=== PATIENT | male | born 1995 | race Caucasian/White ===

== ENCOUNTER 2018-10-06 17:01 | Emergency (ER) | payer OTHER, SELFPAY ==
[2018-10-06 17:39] VITALS: BP 136/82; PULSE 92; RESP 16; TEMP 36.6; O2SAT 98; BMI 29.5
--- NOTE | 2018-10-06 17:51 | HMH.EDUTC ---
[facility] [place] Clinical Impression: Back strain Qualifiers: Encounter type: initial encounter Qualified Code(s): S39.012A - Strain of muscle, fascia and tendon of lower back, initial encounter Back pain Qualifiers: Back pain location: low back pain Chronicity: acute Back pain laterality: left Sciatica presence: without sciatica Qualified Code(s): M54.5 - Low back pain Disposition: Home, Self-Care Condition on Discharge: Good Instructions: Low Back Pain, DI for Back Strain or Sprain Additional Instructions: Rest your back for the next 3 days. Take the medications as prescribed. The muscle relaxer (flexeril) will make you drowsy, so no driving or operating heavy machinery after taking it. Follow up with your regular doctor in 48 hours if you are not getting better. Watch yourself for any numbness of your saddle region or bowel or bladder problems. If you do begin to have this, please go to the ER at once. GO TO THE ER FOR ANY WORSENING OR LIFE THREATENING SYMPTOMS. Prescriptions: Cyclobenzaprine HCl [Flexeril 10mg tablet] 10 mg PO TIDP PRN #30 tablet PRN Reason: Muscle Spasm methylPREDNISolone [Medrol] 4 mg PO DIRECTED 6 Days #21 tab.ds.pk Referrals: Micheal Roberson MD [Primary Care Provider] - Forms: Work/School Release Time of Disposition: 18:02 Medical Decision Making - Medical Records Medical records reviewed: No: I reviewed the patient's medical records. - Andi Inquiry Pt receiving controlled substance: No Andi was queried for this patient: No Vital Signs: 10/06/18 17:39 10/06/18 18:26 Temperature 97.9 F 98.1 F Temperature Source Oral Pulse Rate 86 Pulse Rate [Left Brachial] 92 H Respiratory Rate 16 18 Blood Pressure 130/76 Blood Pressure [Left Arm] 136/82 Blood Pressure Mean [Left Arm] 100 Blood Pressure Source [Left Arm] Automatic Cuff Blood Pressure Position [Left Arm] Sitting 02 Sat by Pulse Oximetry 98 Oxygen Delivery Method Room Air Room Air Orders (Tests/Meds): ED MEDICATIONS Discontinued Medications Generic Name Dose Route Start Last Admin Trade Name Freq PRN Reason Stop Dose Admin Ketorolac Tromethamine 60 mg 10/06/18 18:03 10/06/18 18:08 Toradol 60mg/2ml Vial IM 10/06/18 18:04 60 mg ONCE ONE Administration [facility] [place] - General Stated complaint: WC 0213@2000 Injured Back Time Seen by Provider: 10/06/18 17:45 Mode of Arrival: Family Vehicle Source of Information: Patient Limitations: No Limitations Description of Symptoms (Recalled from Triage Doc. by RN): PT C/O OF BACK PAIN IN LUMBAR AND THORACIC REGION SINCE SUNDAY. 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 PT STATES HIS JOB IS AWARE OF INJURY. HEENT Symptoms (Recalled from RN notes): No Resp Symptoms (Recalled from RN notes): No Skin Symptoms (Recalled from RN notes): No MS Symptoms (Recalled from RN notes): Yes (MID THORACIC AND LUMBAR PAIN) Functional Status (Recalled from RN notes): N/A - History of Present Illness Provider Complaint: HE IS HAVING LOW BACK PAIN SINCE SUNDAY. 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 - Related Data Previous Rx's Medication Instructions Recorded Cyclobenzaprine HCl [Flexeril 10mg 10 mg PO TIDP PRN #30 tablet 10/06/18 tablet] methylPREDNISolone [Medrol] 4 mg PO DIRECTED 6 Days #21 10/06/18 tab.ds.pk Allergies Allergy/AdvReac Type Severity Reaction Status Date / Time No Known Allergies Allergy Verified 10/06/18 17:44 - Worker's Comp Is this a Worker's Comp case?: No [facility] History - Hepatitis A Screen Drug use history?: No High risk sexual behaviors?: No History of sexually transmitted infection?: No Currently employed?: No Childcare worker?: No Do you have indoor plumbing?: No Do you have electricity?: Yes Attestation statement:: This patient has bee
--- NOTE | 2018-10-06 17:56 | ED_ITS ---
[facility] [place]: Back strain Qualifiers: Encounter type: initial encounter Qualified Code(s): S39.012A - Strain of muscle, fascia and tendon of lower back, initial encounter Back pain Qualifiers: Back pain location: low back pain Chronicity: acute Back pain laterality: left Sciatica presence: without sciatica Qualified Code(s): M54.5 - Low back pain Disposition: Home, Self-Care Condition on Discharge: Good Instructions: Low Back Pain, DI for Back Strain or Sprain Additional Instructions: Rest your back for the next 3 days. Take the medications as prescribed. The muscle relaxer (flexeril) will make you drowsy, so no driving or operating heavy machinery after taking it. Follow up with your regular doctor in 48 hours if you are not getting better. Watch yourself for any numbness of your saddle region or bowel or bladder problems. If you do begin to have this, please go to the ER at once. GO TO THE ER FOR ANY WORSENING OR LIFE THREATENING SYMPTOMS. Prescriptions: Cyclobenzaprine HCl [Flexeril 10mg tablet] 10 mg PO TIDP PRN #30 tablet PRN Reason: Muscle Spasm methylPREDNISolone [Medrol] 4 mg PO DIRECTED 6 Days #21 tab.ds.pk Referrals: Micheal Roberson MD [Primary Care Provider] - Forms: Work/School Release Time of Disposition: 18:02 Medical Decision Making - Medical Records Medical records reviewed: No: I reviewed the patient's medical records. - Andi Inquiry Pt receiving controlled substance: No Andi was queried for this patient: No Vital Signs: 10/06/18 17:39 10/06/18 18:26 Temperature 97.9 F 98.1 F Temperature Source Oral Pulse Rate 86 Pulse Rate [Left Brachial] 92 H Respiratory Rate 16 18 Blood Pressure 130/76 Blood Pressure [Left Arm] 136/82 Blood Pressure Mean [Left Arm] 100 Blood Pressure Source [Left Arm] Automatic Cuff Blood Pressure Position [Left Arm] Sitting 02 Sat by Pulse Oximetry 98 Oxygen Delivery Method Room Air Room Air Orders (Tests/Meds): ED MEDICATIONS Discontinued Medications Generic Name Dose Route Start Last Admin Trade Name Freq PRN Reason Stop Dose Admin Ketorolac Tromethamine 60 mg 10/06/18 18:03 10/06/18 18:08 Toradol 60mg/2ml Vial IM 10/06/18 18:04 60 mg ONCE ONE Administration [facility] [place] - General Stated complaint: WC 0213@2000 Injured Back Time Seen by Provider: 10/06/18 17:45 Mode of Arrival: Family Vehicle Source of Information: Patient Limitations: No Limitations Description of Symptoms (Recalled from Triage Doc. by RN): PT C/O OF BACK PAIN IN LUMBAR AND THORACIC REGION SINCE SUNDAY. 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 PT STATES HIS JOB IS AWARE OF INJURY. HEENT Symptoms (Recalled from RN notes): No Resp Symptoms (Recalled from RN notes): No Skin Symptoms (Recalled from RN notes): No MS Symptoms (Recalled from RN notes): Yes (MID THORACIC AND LUMBAR PAIN) Functional Status (Recalled from RN notes): N/A - History of Present Illness Provider Complaint: HE IS HAVING LOW BACK PAIN SINCE SUNDAY. 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 - Related Data
[2018-10-06 18:26] VITALS: BP 130/76; PULSE 86; RESP 18; TEMP 36.7; O2SAT 100
== END 2018-10-06 18:26 | disposition home or self-care (01) ==
PROVIDERS: Emergency Provider Nurse Practitioner Family; PCP Family Medicine
DX: S39.012A Strain of muscle, fascia and tendon of lower back, initial encounter (principal); X50.0XXA Overexertion from strenuous movement or load, initial encounter; Y92.69 Other specified industrial and construction area as the place of occurrence of the external cause; Y99.0 Civilian activity done for income or pay; F17.210 Nicotine dependence, cigarettes, uncomplicated
CPT/HCPCS: 96372; 99201

== ENCOUNTER 2020-01-19 20:27 | Emergency (ER) | payer OTHER, SELFPAY ==
[2020-01-19 20:35] VITALS: BP 137/87; PULSE 70; RESP 20; TEMP 36.9; O2SAT 98; BMI 38.0
--- NOTE | 2020-01-19 20:40 | HMH.EDUTC ---
[facility] – [place] Disposition Clinical Impression: Encounter to obtain excuse from work Disposition: Home, Self-Care Condition on Discharge: Good Instructions: Avoiding Foods That Cause Heartburn, Heartburn -- Overview, DI for Heartburn, GERD Diet Additional Instructions: If you continue to have episodes of heartburn make sure to follow up with your family doctor for further evaluation and treatment *Return if needed Straight to ER if any life threatening sy-mptoms Follow up with family doctor in the next 48-72 hours if no improvement or any worsening of symptoms Referrals: Micheal Roberson MD [Primary Care Provider] - Forms: Work/School Release Time of Disposition: 20:45 Medical Decision Making - Andi Inquiry Pt receiving controlled substance: No Andi was queried for this patient: No Vital Signs: 01/19/20 20:35 Temperature 98.4 F Temperature Source Oral Pulse Rate [Left Brachial] 70 Respiratory Rate 20 Blood Pressure [Left Arm] 137/87 Blood Pressure Mean [Left Arm] 103 Blood Pressure Source [Left Arm] Automatic Cuff Blood Pressure Position [Left Arm] Sitting 02 Sat by Pulse Oximetry 98 Oxygen Delivery Method Room Air [facility] [place] HPI - General Stated complaint: heartburn/doctors note Time Seen by Provider: 01/19/20 20:40 Mode of Arrival: Ambulatory Source of Information: Patient Limitations: No Limitations Description of Symptoms (Recalled from Triage Doc. by RN): PATIENT STATES HE VOMITING ON D/T HEARTBURN AND MISSED WORK. HE SAYS HE HAS NOT VOMITED SINCE. REQUESTING A DOCTOR'S NOTE TO RETURN TO WORK HEENT Symptoms (Recalled from RN notes): No Resp Symptoms (Recalled from RN notes): No Skin Symptoms (Recalled from RN notes): No MS Symptoms (Recalled from RN notes): No Functional Status (Recalled from RN notes): WNL - History of Present Illness Provider Complaint: Patient states that he eat some pizza on Sunday and it give him really bad heartburn and he vomited a couple of times and had to call into work States that his sister had some medication for heartburn and he took some and it helped States that he hasnt vomited since but work wanted him to come in and get a note before work tomorrow Denies known exposure to COVID19 - Related Data Allergies Allergy/AdvReac Type Severity Reaction Status Date / Time No Known Allergies Allergy Verified 05/15/19 21:38 - Worker's Comp Is this a Worker's Comp case?: No [facility] History - Hepatitis A Screen Drug use history?: No High risk sexual behaviors?: No History of sexually transmitted infection?: No Currently employed?: No Childcare worker?: No Do you have indoor plumbing?: Yes Do you have electricity?: Yes Attestation statement:: This patient has been screened for Hepatitis A risk factors. I have reviewed the patient's past medical history: Yes Medical History: Denies:: Cancer, Diabetes Mellitus Type 1, Diabetes Mellitus Type 2, MRSA Laterality Cases: Bilateral: Tonsillectomy Amputation: No Fractures: No - Social History Smoking Status: Current every day smoker Tobacco Type: cigarettes # Packs/Day (cigarettes): 1 Alcohol Intake: never Alcohol Intake Frequency:: a few times a month Occupational Status: employed ROS Obtained: Yes All systems reviewed & no additional complaints, Yes Systems reviewed as appropriate & no additional complaints - Constitutional Constitutional: Reports system reviewed and no additional complaints, except as docu, Denies body ache, Denies chills, Denies fever(s) - ENT Ears, Nose, Mouth, and Throat: Reports system reviewed and no additional complaints, except as docu - Cardiovascular Cardiovascular: Reports system reviewed and no additional complaints, except as docu - Respiratory Respiratory: Yes system reviewed and no additional complaints, except as docu - Gastrointestinal Gastrointestingal: Reports: system reviewed and no additional complaints, except as docu Comments: Vomited twice on Sunday after ge
[2020-01-19 20:41] VITALS: BP 137/87; PULSE 70; RESP 20; TEMP 36.9; O2SAT 98
== END 2020-01-19 20:53 | disposition home or self-care (01) ==
PROVIDERS: Emergency Provider Nurse Practitioner; PCP Family Medicine
DX: Z02.89 Encounter for other administrative examinations (principal); R11.10 Vomiting, unspecified; R12 Heartburn; F17.210 Nicotine dependence, cigarettes, uncomplicated
CPT/HCPCS: 99201

== ENCOUNTER 2020-01-27 20:32 | Emergency (ER) | payer OTHER, SELFPAY ==
[2020-01-27 20:40] VITALS: BP 122/79; PULSE 72; RESP 19; TEMP 36.8; O2SAT 98; BMI 37.8
--- NOTE | 2020-01-27 20:43 | HMH.EDUTC ---
[facility] [place] Clinical Impression: Encounter to obtain excuse from work GERD (gastroesophageal reflux disease) Qualifiers: Esophagitis presence: without esophagitis Qualified Code(s): K21.9 - Gastro-esophageal reflux disease without esophagitis Disposition: Home, Self-Care Condition on Discharge: Good Instructions: Gastroesophageal Reflux Disease (Alternative Therapy), DI for Gastroesophageal Reflux Disease (GERD), GERD Diet, Famotidine Additional Instructions: Avoid GERD exacerbating agents (ETOH, caffeine, nicotine, chocolate, fatty foods) Sleep with head of bed elevated Avoid eating within 3hr of sleep Small frequent feeds, avoid semi-supine position (e.g. carseat, carrier) right after feeds Take medication as prescribed STOP SMOKING Follow up with family doctor for further treatment if no improvement or any worsening of symptom in the next 48-*72 hours Return if needed Straight to ER if any life threatening symptoms Prescriptions: Famotidine [Pepcid 20mg Tablet] 20 mg PO BID 7 Days #14 tab Transmission Status: Pending to [facility] #[id number] Referrals: Micheal Roberson MD [Primary Care Provider] - As needed Forms: Work/School Release Time of Disposition: 20:48 Medical Decision Making - Andi Inquiry Pt receiving controlled substance: No Andi was queried for this patient: No Vital Signs: 01/27/20 20:40 Temperature 98.3 F Temperature Source Oral Pulse Rate [Right Brachial] 72 Respiratory Rate 19 Blood Pressure [Right Arm] 122/79 Blood Pressure Mean [Right Arm] 93 Blood Pressure Source [Right Arm] Automatic Cuff Blood Pressure Position [Right Arm] Sitting 02 Sat by Pulse Oximetry 98 Oxygen Delivery Method Room Air [facility] [place] HPI - General Stated complaint: Vomiting, heartburn Time Seen by Provider: 01/27/20 20:43 Mode of Arrival: Ambulatory Source of Information: Patient Limitations: No Limitations Description of Symptoms (Recalled from Triage Doc. by RN): PATIENT STATES HE HAD HEARTBURN AT WORK WHICH CAUSED HIM TO VOMIT. HE IS REQUESTING A WORK EXCUSE HEENT Symptoms (Recalled from RN notes): No Resp Symptoms (Recalled from RN notes): No Skin Symptoms (Recalled from RN notes): No MS Symptoms (Recalled from RN notes): No Functional Status (Recalled from RN notes): WNL - History of Present Illness Provider Complaint: Patient states that he has a history of GERD States that he tried over the counter Prilosec and it hasnt helped and earlier today he had heartburn and vomited and they sent him from home from work, States they told him he had to come in and get checked before he could return to work tomorrow - Related Data Previous Rx's Medication Instructions Recorded Famotidine [Pepcid 20mg Tablet] 20 mg PO BID 7 Days #14 tab 01/27/20 Allergies Allergy/AdvReac Type Severity Reaction Status Date / Time No Known Allergies Allergy Verified 05/15/19 21:38 - Worker's Comp Is this a Worker's Comp case?: No [facility] History - Hepatitis A Screen Drug use history?: No High risk sexual behaviors?: No History of sexually transmitted infection?: No Currently employed?: No Childcare worker?: No Do you have indoor plumbing?: Yes Do you have electricity?: Yes Attestation statement:: This patient has been screened for Hepatitis A risk factors. I have reviewed the patient's past medical history: Yes Medical History: Denies:: Cancer, Diabetes Mellitus Type 1, Diabetes Mellitus Type 2, MRSA Laterality Cases: Bilateral: Tonsillectomy Amputation: No Fractures: No - Social History Smoking Status: Current every day smoker Tobacco Type: cigarettes # Packs/Day (cigarettes): 1 Alcohol Intake: never Alcohol Intake Frequency:: a few times a month Occupational Status: other ROS Obtained: Yes All systems reviewed & no additional complaints, Yes Systems reviewed as appropriate & no additional complaints - Gastrointestinal Gastrointestingal: Reports: dyspepsia, vomiting Physical
[2020-01-27 20:50] VITALS: BP 122/79; PULSE 72; RESP 19; TEMP 36.8; O2SAT 98
== END 2020-01-27 20:55 | disposition home or self-care (01) ==
PROVIDERS: Emergency Provider Nurse Practitioner; PCP Family Medicine
DX: K21.9 Gastro-esophageal reflux disease without esophagitis (principal); F17.210 Nicotine dependence, cigarettes, uncomplicated; Z02.89 Encounter for other administrative examinations
CPT/HCPCS: 99201

== ENCOUNTER 2020-02-18 20:36 | Emergency (ER) | payer OTHER, SELFPAY ==
[2020-02-18 20:45] VITALS: BP 147/82; PULSE 68; RESP 19; TEMP 36.8; O2SAT 98; BMI 37.8
--- NOTE | 2020-02-18 20:51 | HMH.EDUTC ---
[facility] [place] Clinical Impression: GERD (gastroesophageal reflux disease) Qualifiers: Esophagitis presence: esophagitis presence not specified Qualified Code(s): K21.9 - Gastro-esophageal reflux disease without esophagitis Disposition: Home, Self-Care Condition on Discharge: Good Instructions: DI for Gastroesophageal Reflux Disease (GERD), GERD Diet, Heartburn -- Overview, Gastroesophageal Reflux Disease (Alternative Therapy), Serious Ways to Stop Smoking, How to Quit Smoking Additional Instructions: Take medication as prescribed *Stop smoking, this could aggravate your GERD and make heartburn worse Take medication as prescribed FOllow up with family doctor if no improvement or any worsening of symptoms in the next 48-72 hours Straight to ER if any life threatening symptoms Make sure not to eat or drink at least a couple hours prior to laying down to sleep and sit upright at least thirty minutes after eating or drinking Return if needed Prescriptions: Famotidine [Pepcid 20mg Tablet] 20 mg PO BID 14 Days #28 tab Transmission Status: Pending to [facility] #[id number] Referrals: Micheal Roberson MD [Primary Care Provider] - As needed Forms: Work/School Release Time of Disposition: 21:02 Medical Decision Making - Andi Inquiry Pt receiving controlled substance: No Andi was queried for this patient: No Vital Signs: 02/18/20 20:45 Temperature 98.2 F Temperature Source Oral Pulse Rate [Right Brachial] 68 Respiratory Rate 19 Blood Pressure [Right Arm] 147/82 H Blood Pressure Mean [Right Arm] 103 Blood Pressure Source [Right Arm] Automatic Cuff Blood Pressure Position [Right Arm] Sitting 02 Sat by Pulse Oximetry 98 Oxygen Delivery Method Room Air Medical Decision Narrative: Patient states that Famotidine that he was prescribed previously for heart burn helped but he ran out of the medication and did not follow up with PCP for further prescriptions Patient educated that he must follow up with PCP for further prescriptions of medication to help with heartburn and he agreed [facility] [place] - General Stated complaint: not feeling well Time Seen by Provider: 02/18/20 20:51 Mode of Arrival: Ambulatory Source of Information: Patient Limitations: No Limitations Description of Symptoms (Recalled from Triage Doc. by RN): PATIENT C/O VOMITING X 1 DUE TO HEARTBURN AND DID NOT GO TO WORK; REQUESTING A WORK EXCUSE HEENT Symptoms (Recalled from RN notes): No Resp Symptoms (Recalled from RN notes): No Skin Symptoms (Recalled from RN notes): No MS Symptoms (Recalled from RN notes): No Functional Status (Recalled from RN notes): WNL - History of Present Illness Provider Complaint: Patient state that he has been seen multiple times over the last month for heart burn and was given prescription for medication and it helped but he is out of the medication and didnt follow up with PCP like he was suppose to State that today he was having heart burn again and vomited x 1 and didnt go to work so he came in to get a doctors note - Related Data Previous Rx's Medication Instructions Recorded Famotidine [Pepcid 20mg Tablet] 20 mg PO BID 7 Days #14 tab 01/27/20 Famotidine [Pepcid 20mg Tablet] 20 mg PO BID 14 Days #28 tab 02/18/20 Allergies Allergy/AdvReac Type Severity Reaction Status Date / Time No Known Allergies Allergy Verified 05/15/19 21:38 - Worker's Comp Is this a Worker's Comp case?: No [facility] History - Hepatitis A Screen Drug use history?: No High risk sexual behaviors?: No History of sexually transmitted infection?: No Currently employed?: No Childcare worker?: No Do you have indoor plumbing?: Yes Do you have electricity?: Yes Attestation statement:: This patient has been screened for Hepatitis A risk factors. I have reviewed the patient's past medical history: Yes Medical History: Denies:: Cancer, Diabetes Mellitus Type 1, Diabetes Mellitus Type 2, MRSA Laterality Cases: Bilateral: Tonsi
[2020-02-18 21:03] VITALS: BP 147/82; PULSE 68; RESP 19; TEMP 36.8; O2SAT 98
== END 2020-02-18 21:05 | disposition home or self-care (01) ==
PROVIDERS: Emergency Provider Nurse Practitioner; PCP Family Medicine
DX: K21.9 Gastro-esophageal reflux disease without esophagitis (principal); F17.210 Nicotine dependence, cigarettes, uncomplicated; Z90.09 Acquired absence of other part of head and neck
CPT/HCPCS: 99201

== ENCOUNTER 2020-03-23 16:45 | Emergency (ER) | payer OTHER, SELFPAY ==
[2020-03-23 17:00] VITALS: BP 144/87; PULSE 72; RESP 14; TEMP 36.7; O2SAT 98; BMI 34.0
--- NOTE | 2020-03-23 17:03 | HMH.EDUTC ---
[facility] – [place] Dis[place] Clinical Impression: Right shoulder injury Qualifiers: Encounter type: initial encounter Qualified Code(s): S49.91XA - Unspecified injury of right shoulder and upper arm, initial encounter Disposition: Home, Self-Care Condition on Discharge: Good Instructions: DI for Shoulder Sprain Additional Instructions: Follow up with PCP if not improving. Xray was running behind and patient had to leave for work. Referrals: Micheal Roberson MD [Primary Care Provider] - Forms: Work/School Release Time of Disposition: 18:08 Medical Decision Making - Andi Inquiry Pt receiving controlled substance: No Vital Signs: 03/23/20 17:00 Temperature 98.1 F Temperature Source Oral Pulse Rate [Right Brachial] 72 Respiratory Rate 14 Blood Pressure [Right Arm] 144/87 H Blood Pressure Mean [Right Arm] 106 Blood Pressure Source [Right Arm] Automatic Cuff Blood Pressure Position [Right Arm] Sitting 02 Sat by Pulse Oximetry 98 Oxygen Delivery Method Room Air Orders (Tests/Meds): ORDERS Category Date Time Status Humerus XR right [XR humerus RT] Stat Exams 03/23/20 17:07 Ordered XR shoulder RT min 2V Stat Exams 03/23/20 17:07 Ordered [facility] [place] HPI - General Stated complaint: ao 0802 @1400 injured R shoulder Time Seen by Provider: 03/23/20 17:03 Mode of Arrival: Ambulatory Source of Information: Patient Limitations: No Limitations Description of Symptoms (Recalled from Triage Doc. by RN): PATIENT C/O PAIN TO RIGHT ARM AND SHOULDER SINCE SUNDAY HE Symptoms (Recalled from RN notes): No Resp Symptoms (Recalled from RN notes): No Skin Symptoms (Recalled from RN notes): No MS Symptoms (Recalled from RN notes): Yes Functional Status (Recalled from RN notes): WNL - History of Present Illness Provider Complaint: Patient fell out of truck and landed on right arm 2 days ago. Has pain across shoulder blade in upper arm with movement. Onset (ago): day(s) (2) Location: right, upper extremity Radiation: non-radiation Relieving factors: immobilization Exacerbating factors: movement Associated symptoms: denies other symptoms Treatments prior to arrival: none - Related Data Previous Rx's Medication Instructions Recorded Famotidine [Pepcid 20mg Tablet] 20 mg PO BID 7 Days #14 tab 01/27/20 Famotidine [Pepcid 20mg Tablet] 20 mg PO BID 14 Days #28 tab 02/18/20 Allergies Allergy/AdvReac Type Severity Reaction Status Date / Time No Known Allergies Allergy Verified 05/15/19 21:38 - Worker's Comp Is this a Worker's Comp case?: No [facility] History - Hepatitis A Screen Drug use history?: No High risk sexual behaviors?: No History of sexually transmitted infection?: No Currently employed?: No Childcare worker?: No Do you have indoor plumbing?: Yes Do you have electricity?: Yes Attestation statement:: This patient has been screened for Hepatitis A risk factors. I have reviewed the patient's past medical history: Yes Medical History: Denies:: Cancer, Diabetes Mellitus Type 1, Diabetes Mellitus Type 2, MRSA Laterality Cases: Bilateral: Tonsillectomy Amputation: No Fractures: No - Social History Smoking Status: Current every day smoker Tobacco Type: cigarettes # Packs/Day (cigarettes): 1 Alcohol Intake: never Alcohol Intake Frequency:: a few times a month Occupational Status: other ROS Obtained: Yes All systems reviewed & no additional complaints - Musculoskeletal Musculoskeletal: Reports as per HPI, Reports joint pain Physical Exam - General General appearance: alert, in no apparent distress - Head Head exam: atraumatic, normocephalic - Eye Eye exam: Present: PERRL - ENT ENT exam: Present: normal oropharynx - Neck Neck exam: Present: normal inspection, full ROM - Chest Chest inspection: Present: normal inspection, symmetric chest wall rise - Respiratory Respiratory exam: Present: normal lung sounds bilaterally - Cardiovascular Cardiovascular exam: Present: regular r
[2020-03-23 18:06] VITALS: BP 144/87; PULSE 72; RESP 14; TEMP 36.7; O2SAT 98
== END 2020-03-23 18:13 | disposition home or self-care (01) ==
PROVIDERS: Emergency Provider Physician Assistant; PCP Family Medicine
DX: S40.011A Contusion of right shoulder, initial encounter (principal); V58.4XXA Person boarding or alighting a pick-up truck or van injured in noncollision transport accident, initial encounter; Y92.89 Other specified places as the place of occurrence of the external cause; F17.210 Nicotine dependence, cigarettes, uncomplicated; Z90.09 Acquired absence of other part of head and neck
CPT/HCPCS: 99201

== ENCOUNTER 2020-04-07 17:38 | Emergency (ER) | payer OTHER, SELFPAY ==
[2020-04-07 18:29] VITALS: BMI 34.4
--- NOTE | 2020-04-07 18:30 | XR_ITS ---
PROCEDURE: XR SHOULDER RT MIN 2V CLINICAL INDICATION: PAIN/INJURY COMPARISON: CR XR SHOULDER RT MIN 2V from 11/13/2019 FINDINGS: No fracture or dislocation. No lytic or blastic change. There is normal mineralization. The joint spaces are well-preserved. No significant degenerative/arthritic changes. No erosive changes evident. Other findings:None. IMPRESSION: No acute findings. Dictated by: Riley Yip MD 04/07/2020 21:54 Riley Yip MD in [place] 04/07/2020 21:54
[2020-04-07 18:32] VITALS: BP 142/66; PULSE 61; RESP 20; TEMP 36.9; O2SAT 99; BMI 34.4
--- NOTE | 2020-04-07 19:12 | HMH.EDUTC ---
[facility] [place]: Right shoulder strain Qualifiers: Encounter type: initial encounter Qualified Code(s): S46.911A - Strain of unspecified muscle, fascia and tendon at shoulder and upper arm level, right arm, initial encounter Right shoulder pain Qualifiers: Chronicity: acute Qualified Code(s): M25.511 - Pain in right shoulder Disposition: Home, Self-Care Condition on Discharge: Good Additional Instructions: Rest the extremity, Elevate the extremity as tolerated while you are resting. I suggest you take a couple days off work and baby your shoulder while taking the antiinflammatory medications. Take ibuprofen for pain. I sent in a prescription to your pharmacy. The robaxin (muscle relaxer) will make you drowsy, so don't drive or operate heavy machinery after taking it. Follow up with Dr. Moya (orthopedics). I put in a referral but you need to call his office and schedule an appointment. Follow up with your regular doctor. GO TO THE ER FOR ANY WORSENING SYMPTOMS Prescriptions: Ibuprofen [Ibuprofen 600mg Tablet] 600 mg PO Q6HP PRN #30 tab PRN Reason: Mild Pain Transmission Status: Received by [facility] #[id number] Methocarbamol [Robaxin 500mg Tab] 500 mg PO BIDP PRN #30 tab PRN Reason: Muscle Spasm Transmission Status: Received by [facility] #[id number] Referrals: Micheal Roberson MD [Primary Care Provider] - Forms: Work/School Release Time of Disposition: 19:20 Medical Decision Making - Medical Records Medical records reviewed: No: I reviewed the patient's medical records. - Andi Inquiry Pt receiving controlled substance: No Vital Signs: 04/07/20 18:32 04/07/20 19:33 Temperature 98.5 F 98.5 F Temperature Source Oral Pulse Rate 61 Pulse Rate [Right Brachial] 61 Respiratory Rate 20 20 Blood Pressure 142/66 H Blood Pressure [Right Arm] 142/66 H Blood Pressure Mean [Right Arm] 91 Blood Pressure Source [Right Arm] Automatic Cuff Blood Pressure Position [Right Arm] Sitting 02 Sat by Pulse Oximetry 99 - Radiology Data #1 Image(s): Shoulder Image Reviewed: Yes I reviewed the patient's radiology image, Yes I have reviewed radiologist's interpretation Preliminary Findings: Normal/NAD PROCEDURE: XR SHOULDER RT MIN 2V CLINICAL INDICATION: PAIN/INJURY COMPARISON: CR XR SHOULDER RT MIN 2V from 11/13/2019 FINDINGS: No fracture or dislocation. No lytic or blastic change. There is normal mineralization. The joint spaces are well-preserved. No significant degenerative/arthritic changes. No erosive changes evident. Other findings:None. IMPRESSION: No acute findings. Dictated by: Riley Yip MD 04/07/2020 21:54 Riley Yip MD in [place] 04/07/2020 21:54 [facility] [place] - General Stated complaint: Right shoulder pain AO 2 weeks ago Time Seen by Provider: 04/07/20 19:13 Mode of Arrival: Ambulatory Source of Information: Patient Limitations: No Limitations Description of Symptoms (Recalled from Triage Doc. by RN): PATIENT C/O RIGHT SHOULDER PAIN WITH MOVMENT HEENT Symptoms (Recalled from RN notes): No Resp Symptoms (Recalled from RN notes): No Skin Symptoms (Recalled from RN notes): No MS Symptoms (Recalled from RN notes): Yes Functional Status (Recalled from RN notes): WNL - History of Present Illness Provider Complaint: He c/o right shoulder pain for the past 2 weeks. He states that he had to pull really hard on a tool box at work right before his pain started. When he pulled, he felt his right shoulder pop out of place for a few seconds. It went back into place on its own, but he has had right shoulder pain since then. Moving the shoulder makes his pain worse. Raising his arm over his head or trying to scratch his own back really makes it hurt. When he has worked since originally hurting it, his shoulder has really bad thru out his work day and thru the night afterwards. It hurts so bad that he cannot sleep at times after
[2020-04-07 19:33] VITALS: BP 142/66; PULSE 61; RESP 20; TEMP 36.9; O2SAT 99
== END 2020-04-07 19:40 | disposition home or self-care (01) ==
PROVIDERS: Emergency Provider Nurse Practitioner Family; PCP Family Medicine
DX: S46.911A Strain of unspecified muscle, fascia and tendon at shoulder and upper arm level, right arm, initial encounter (principal); F17.210 Nicotine dependence, cigarettes, uncomplicated; Z90.09 Acquired absence of other part of head and neck; X50.0XXA Overexertion from strenuous movement or load, initial encounter
CPT/HCPCS: 73030; 99201

== ENCOUNTER 2020-05-18 12:05 | Emergency (ER) | payer OTHER, SELFPAY ==
[2020-05-18 12:47] VITALS: BP 144/90; PULSE 76; RESP 19; O2SAT 100; BMI 32.5
--- NOTE | 2020-05-18 13:03 | HMH.EDUTC ---
[facility] [place]ression: Encounter for laboratory testing for COVID-19 virus Disposition: Home, Self-Care Condition on Discharge: Good Instructions: Preventing the Spread of Coronavirus Discharge Instructions Additional Instructions: You was tested for today for COVID19 your test result should be back tomorrow or , you may call back in the evening tomorrow or evening to see if your test results are back and the result You was given a handout with instructions for Self Quarantine and Self isolation for while you wait on test results and what to do if they are positive Return if needed No work until negative COVID test Referrals: Micheal Roberson MD [Primary Care Provider] - As needed Time of Disposition: 13:05 Medical Decision Making - Andi Inquiry Pt receiving controlled substance: No Andi was queried for this patient: No Vital Signs: 05/18/20 12:47 Pulse Rate [Right Brachial] 76 Respiratory Rate 19 Blood Pressure [Right Arm] 144/90 H Blood Pressure Mean [Right Arm] 108 Blood Pressure Source [Right Arm] Automatic Cuff Blood Pressure Position [Right Arm] Sitting 02 Sat by Pulse Oximetry 100 Oxygen Delivery Method Room Air Orders (Tests/Meds): ORDERS Category Date Time Status Covid-19 Nasal PCR Sendout [facility] 05/18/20 12:42 [place] [facility] [place] - General Stated complaint: covid test Time Seen by Provider: 05/18/20 13:03 Mode of Arrival: Ambulatory Source of Information: Patient Limitations: No Limitations Description of Symptoms (Recalled from Triage Doc. by RN): PATIENT NEEDING COVID TEST. EXPOSED TO COWORKER WHO TESTED POSITIVE YESTERDAY, DENIES SYMPTOMS HEENT Symptoms (Recalled from RN notes): No Resp Symptoms (Recalled from RN notes): No Skin Symptoms (Recalled from RN notes): No MS Symptoms (Recalled from RN notes): No Functional Status (Recalled from RN notes): WNL - History of Present Illness Provider Complaint: Patient was sent to the [facility] by employer to get tested for COVID due to recently exposed to someone at work that tested positive for COVID yesterday States that he is not having any symtpoms that is out of the ordinary States that he has allergies and has been having some runny nose - Related Data Previous Rx's Medication Instructions Recorded Famotidine [Pepcid 20mg Tablet] 20 mg PO BID 7 Days #14 tab 01/27/20 Famotidine [Pepcid 20mg Tablet] 20 mg PO BID 14 Days #28 tab 02/18/20 Ibuprofen [Ibuprofen 600mg 600 mg PO Q6HP PRN #30 tab 04/07/20 Tablet] Methocarbamol [Robaxin 500mg Tab] 500 mg PO BIDP PRN #30 tab 04/07/20 Allergies Allergy/AdvReac Type Severity Reaction Status Date / Time No Known Allergies Allergy Verified 05/15/19 21:38 - Worker's Comp Is this a Worker's Comp case?: No [facility] History - Hepatitis A Screen Drug use history?: No High risk sexual behaviors?: No History of sexually transmitted infection?: No Currently employed?: No Childcare worker?: No Do you have indoor plumbing?: Yes Do you have electricity?: Yes Attestation statement:: This patient has been screened for Hepatitis A risk factors. I have reviewed the patient's past medical history: Yes Medical History: Denies:: Cancer, Diabetes Mellitus Type 1, Diabetes Mellitus Type 2, MRSA Laterality Cases: Bilateral: Tonsillectomy Amputation: No Fractures: No - Social History Smoking Status: Current every day smoker Tobacco Type: cigarettes # Packs/Day (cigarettes): 1 Alcohol Intake: never Alcohol Intake Frequency:: a few times a month Occupational Status: other ROS Obtained: Yes All systems reviewed & no additional complaints, Yes Systems reviewed as appropriate & no additional complaints - Constitutional Constitutional: Reports system reviewed and no additional complaints, except as docu, Denies body ache, Denies chills, Denies fever(s) - ENT Ears, Nose, Mouth, and Throat: Denies nasal congestion, Reports nasal discharge, Denies sore
[2020-05-18 13:23] VITALS: BP 144/90; PULSE 76; RESP 19; TEMP 36.7; O2SAT 100
[2020-05-19 16:24] LABS: Covid-19 Nasal PCR Sendout Lex Not Detected
== END 2020-05-18 13:24 | disposition home or self-care (01) ==
PROVIDERS: Emergency Provider Nurse Practitioner; PCP Family Medicine
DX: Z20.828 Contact with and (suspected) exposure to other viral communicable diseases (principal); F17.210 Nicotine dependence, cigarettes, uncomplicated
CPT/HCPCS: 99201; U0004

== ENCOUNTER 2020-05-25 09:16 | Emergency (ER) | payer OTHER, SELFPAY ==
[2020-05-25 09:25] VITALS: BP 141/90; PULSE 71; RESP 19; TEMP 36.6; O2SAT 98; BMI 32.5
--- NOTE | 2020-05-25 09:44 | HMH.EDUTC ---
[facility] [place]: Gastroenteritis GERD (gastroesophageal reflux disease) Qualifiers: Esophagitis presence: esophagitis presence not specified Qualified Code(s): K21.9 - Gastro-esophageal reflux disease without esophagitis Disposition: Home, Self-Care Condition on Discharge: Good Instructions: Gastroesophageal Reflux Disease (Alternative Therapy), GERD Diet Additional Instructions: Drink plenty of fluids. Take tylenol or ibuprofen for pain or fever. Take the medications as directed. Follow up with your regular doctor. GO TO THE ER FOR ANY WORSENING SYMPTOMS Prescriptions: Ondansetron [Zofran 4mg ODT] 4 mg PO Q8HP PRN #20 tab.rapdis PRN Reason: Nausea Transmission Status: Received by [facility] #[id number] Referrals: Micheal Roberson MD [Primary Care Provider] - Forms: Work/School Release Time of Disposition: 09:49 Medical Decision Making - Medical Records Medical records reviewed: No: I reviewed the patient's medical records. - Andi Inquiry Pt receiving controlled substance: No Vital Signs: 05/25/20 09:25 05/25/20 09:57 Temperature 97.8 F 97.8 F Temperature Source Oral Pulse Rate 71 Pulse Rate [Right Brachial] 71 Respiratory Rate 19 19 Blood Pressure 141/90 H Blood Pressure [Right Arm] 141/90 H Blood Pressure Mean [Right Arm] 107 Blood Pressure Source [Right Arm] Automatic Cuff Blood Pressure Position [Right Arm] Sitting 02 Sat by Pulse Oximetry 98 Oxygen Delivery Method Room Air [facility] [place] - General Stated complaint: vomiting Time Seen by Provider: 05/25/20 09:44 Mode of Arrival: Ambulatory Source of Information: Patient Limitations: No Limitations Description of Symptoms (Recalled from Triage Doc. by RN): PATIENT C/O VOMITING AND DIARRHEA SINCE LAST NIGHT HEENT Symptoms (Recalled from RN notes): No Resp Symptoms (Recalled from RN notes): No Skin Symptoms (Recalled from RN notes): No MS Symptoms (Recalled from RN notes): No Functional Status (Recalled from RN notes): WNL - History of Present Illness Provider Complaint: He states that that thru last night at work he had n/v. He has vomited twice. He denies any abdominal pain. He was sent home from work due to his vomiting. He refuses a COVID-19 test today. - Related Data Previous Rx's Medication Instructions Recorded Ondansetron [Zofran 4mg ODT] 4 mg PO Q8HP PRN #20 tab.ebenezerdis 05/25/20 Allergies Allergy/AdvReac Type Severity Reaction Status Date / Time No Known Allergies Allergy Verified 05/15/19 21:38 - Worker's Comp Is this a Worker's Comp case?: No H History - Hepatitis A Screen Drug use history?: No High risk sexual behaviors?: No History of sexually transmitted infection?: No Currently employed?: No Childcare worker?: No Do you have indoor plumbing?: Yes Do you have electricity?: Yes Attestation statement:: This patient has been screened for Hepatitis A risk factors. I have reviewed the patient's past medical history: Yes Medical History: Denies:: Cancer, Diabetes Mellitus Type 1, Diabetes Mellitus Type 2, MRSA Laterality Cases: Bilateral: Tonsillectomy Amputation: No Fractures: No - Social History Smoking Status: Current every day smoker Tobacco Type: cigarettes # Packs/Day (cigarettes): 1 Alcohol Intake: never Alcohol Intake Frequency:: a few times a month Occupational Status: other ROS Obtained: Yes All systems reviewed & no additional complaints - Constitutional Constitutional: Denies chills, Denies fever(s), Reports poor appetite, Reports malaise - Eyes Eyes: Denies eye discharge - ENT Ears, Nose, Mouth, and Throat: Reports as per HPI - Cardiovascular Cardiovascular: Denies chest pain - Respiratory Respiratory: Yes as per HPI - Gastrointestinal Gastrointestingal: Reports: as per HPI Physical Exam - General General appearance: alert, in no apparent distress - Head Head exam: atraumatic, normocephalic
[2020-05-25 09:57] VITALS: BP 141/90; PULSE 71; RESP 19; TEMP 36.6; O2SAT 98
== END 2020-05-25 10:00 | disposition home or self-care (01) ==
PROVIDERS: Emergency Provider Nurse Practitioner Family; PCP Family Medicine
DX: K52.9 Noninfective gastroenteritis and colitis, unspecified (principal); K21.9 Gastro-esophageal reflux disease without esophagitis; F17.210 Nicotine dependence, cigarettes, uncomplicated
CPT/HCPCS: 99201

== ENCOUNTER 2020-06-10 20:32 | Emergency (ER) | payer OTHER, SELFPAY ==
[2020-06-10 21:02] VITALS: BP 122/64; PULSE 78; RESP 18; TEMP 37.2; O2SAT 98; BMI 31.7
--- NOTE | 2020-06-10 21:11 | HMH.EDUTC ---
[facility] [place] Disposition Clinical Impression: Encounter to obtain excuse from work Diarrhea Qualifiers: Diarrhea type: unspecified type Qualified Code(s): R19.7 - Diarrhea, unspecified Disposition: Home, Self-Care Condition on Discharge: Good Instructions: Diarrhea, Diarrhea (Alternative Therapy) Additional Instructions: ? Avoid fruit juices, as these do not replace minerals and can actually increase diarrhea. ? Children and adults can use sports drinks to replenish electrolytes. Younger children and infants should use products formulated for children, like oral rehydration solutions. ? Eat food in small amounts and let your stomach recover. ? Get lots of rest. You may feel tired or weak. ? No greasy or fried foods for the next 24-48 hours BRAT diet Bananas Rice Apples and Flanagan ? Make sure to drink plenty of liquids ? Return if needed ? Straight to ER if any life threatening symptoms ? You was given an outpatient order for diarrhea panel, please collect specimen and bring back to outpatient lab then call back to the [facility] or follow up with family doctor for results ? Follow up with family doctor in the next 48-72 hours if no improvement or any worsening of symptoms Return if needed Straight to ER if any life threatening symptoms Over the counter Immodium may help with diarrhea Prescriptions: Famotidine [Pepcid 20mg Tablet] 20 mg PO BID 14 Days #28 tab Transmission Status: Pending to [facility] Referrals: Micheal Roberson MD [Primary Care Provider] - As needed Forms: Work/School Release Time of Disposition: 21:15 Medical Decision Making - Andi Inquiry Pt receiving controlled substance: No Andi was queried for this patient: No Vital Signs: 06/10/20 21:02 Temperature 98.9 F Temperature Source Oral Pulse Rate [Radial] 78 Respiratory Rate 18 Blood Pressure [Right Arm] 122/64 Blood Pressure Mean [Right Arm] 83 Blood Pressure Source [Right Arm] Automatic Cuff Blood Pressure Position [Right Arm] Sitting 02 Sat by Pulse Oximetry 98 Oxygen Delivery Method Room Air [facility] [place] HPI - General Stated complaint: Vomiting, Diarrhea Time Seen by Provider: 06/10/20 21:11 Mode of Arrival: Ambulatory Source of Information: Patient Limitations: No Limitations Description of Symptoms (Recalled from Triage Doc. by RN): DIARRHEA SINCE THIS MORNING. NEEDS WORK NOTE HEENT Symptoms (Recalled from RN notes): No Resp Symptoms (Recalled from RN notes): No Skin Symptoms (Recalled from RN notes): No MS Symptoms (Recalled from RN notes): No Functional Status (Recalled from RN notes): WNL - History of Present Illness Provider Complaint: Patient state that he has a history of chronic diarrhea on and off States that he was at work today and had several episodes of diarrhea and they sent him home from work and told him that he had to come get checked and get a work not States that diarrhea is better and needs a note for work State that also is out of Famotidine and wanted to see if he could get some - Related Data Previous Rx's Medication Instructions Recorded Ondansetron [Zofran 4mg ODT] 4 mg PO Q8HP PRN #20 tab.rapdis 05/25/20 Famotidine [Pepcid 20mg Tablet] 20 mg PO BID 14 Days #28 tab 06/10/20 Allergies Allergy/AdvReac Type Severity Reaction Status Date / Time No Known Allergies Allergy Verified 05/15/19 21:38 - Worker's Comp Is this a Worker's Comp case?: No [facility] History - Hepatitis A Screen Drug use history?: No High risk sexual behaviors?: No History of sexually transmitted infection?: No Currently employed?: No Childcare worker?: No Do you have indoor plumbing?: Yes Do you have electricity?: Yes Attestation statement:: This patient has been screened for Hepatitis A risk factors. I have reviewed the patient's past medical history: Yes Medical History: Denies:: Cancer, Diabetes Mellitus Type 1, Diabetes Mellitus Type 2, MRSA Laterality Cases: Bilateral: Tonsillectomy Amputation: No
[2020-06-10 21:26] VITALS: BP 122/64; PULSE 78; RESP 18; TEMP 37.2; O2SAT 98
== END 2020-06-10 21:27 | disposition home or self-care (01) ==
PROVIDERS: Emergency Provider Nurse Practitioner; PCP Family Medicine
DX: R19.7 Diarrhea, unspecified (principal); F17.210 Nicotine dependence, cigarettes, uncomplicated
CPT/HCPCS: 99201

== ENCOUNTER 2021-01-05 17:58 | Emergency (ER) | payer BC, SELFPAY ==
[2021-01-05 18:20] VITALS: BP 136/79; PULSE 77; RESP 18; TEMP 36.9; O2SAT 98; BMI 34.0
[2021-01-05 18:40] LABS: UTC Strep Screen (Rapid) Negative (Negative)
--- NOTE | 2021-01-05 18:40 | HMH.EDUTC ---
[facility] [place] Clinical Impression: Bronchitis Sinusitis Qualifiers: Sinusitis location: unspecified location Chronicity: unspecified Qualified Code(s): J32.9 - Chronic sinusitis, unspecified Disposition: Home, Self-Care Condition on Discharge: Good Instructions: Sinusitis, DI for Sinusitis, DI for Acute Bronchitis, Acute Bronchitis, Azithromycin, Methylprednisolone Additional Instructions: ? Start antibiotic today. Be sure to complete entire prescription even if feeling better ? Monitor temp. Tylenol every 4 hours as needed and / or ibuprofen every 6 hours as needed ( As long as your primary care physician has told you that it ok to take both. For fever/aches/pains ER if no less than 101 despite Tylenol or Motrin ? Humidifier/vaporizer or hot steamy shower ? Inhaler every 4-6 hours as needed like we discussed. If unsure how to use it, ask pharmacist to demonstrate how. Should help open airways and improve cough, wheezing, and shortness of breath ? Mucinex during the day for your cough and cough suppressant only at night. Be sure to drink lots of water. Insurance may not cover a prescriptions for mucinex. Might be cheaper to get 400mg tablets and take 2 tablet in the morning, mid-day and evening with lots of water. *Start steroid today. Helps with inflammation therefore, cough and wheezing. Follow directions on the package. Reviewed side effects. Patient reports taking them before. Follow up IMMEDIATELY for new or worsening of symptoms OR no noticeable improvement over the next 48-72 hours. 911 immediately for any life threatening symptoms such as chest pain or difficulty breathing Prescriptions: Albuterol Sulfate [Proventil-HFA 90mcg/puff Inh] 1 - 2 puffs IH Q4HP PRN #1 inh PRN Reason: Shortness Of Breath Transmission Status: Pending to [facility] methylPREDNISolone [Medrol 4mg tab] 4 mg PO DIRECTED #21 tab Transmission Status: Pending to [facility] guaiFENesin [Mucinex 600mg tablet] 1 - 2 tab PO Q12H PRN #20 tab.er.12h PRN Reason: Congestion Transmission Status: Pending to [facility] Azithromycin [Z-Corey 250mg Tab] 250 mg PO DIRECTED #6 tab Transmission Status: Pending to [facility] Referrals: Micheal Roberson MD [Primary Care Provider] - As needed Forms: Work/School Release Time of Disposition: 18:48 Medical Decision Making - Andi Inquiry Pt receiving controlled substance: No Andi was queried for this patient: No Vital Signs: 01/05/21 18:20 Temperature 98.4 F Temperature Source Oral Pulse Rate [Right Brachial] 77 Respiratory Rate 18 Blood Pressure [Right Arm] 136/79 Blood Pressure Mean [Right Arm] 98 Blood Pressure Source [Right Arm] Automatic Cuff Blood Pressure Position [Right Arm] Sitting 02 Sat by Pulse Oximetry 98 Oxygen Delivery Method Room Air - Lab Data Lab results reviewed: Yes: I reviewed the patient's lab results. Orders (Tests/Meds): ORDERS Category Date Time Status Covid-19 Nasal PCR ([facility]) Routine Lab 01/05/21 18:34 Ordered [facility] [place] HPI - General Stated complaint: sore throat, fever, achy, tired Time Seen by Provider: 01/05/21 18:40 Mode of Arrival: Ambulatory Source of Information: Patient Limitations: No Limitations Description of Symptoms (Recalled from Triage Doc. by RN): PATIENT C/O FEVER, HEADACHE, AND CONGESTION X 4 DAYS. RECENTLY EXPOSED TO STREP AND COVID HEENT Symptoms (Recalled from RN notes): Yes Resp Symptoms (Recalled from RN notes): No Skin Symptoms (Recalled from RN notes): No MS Symptoms (Recalled from RN notes): No Functional Status (Recalled from RN notes): WNL - History of Present Illness Provider Complaint: Pateint state that he was recently around someone who was positive for strep and another that was positive for COVID States that he has been having sinus pressure and pain along with cough, chest congestion feeling tired, sore throat , body aches and chills. St
[2021-01-05 18:55] VITALS: BP 136/79; PULSE 77; RESP 18; TEMP 36.9; O2SAT 98
--- NOTE | 2021-01-05 20:59 | PC.NURSE ---
Attempted to call pt at this time, no answer. will try again in the A.M
--- NOTE | 2021-01-06 09:10 | PC.NURSE ---
PATIENT NOTIFIED OF POSITIVE COVID RESULT AT THIS TIME
== END 2021-01-05 18:56 | disposition home or self-care (01) ==
PROVIDERS: Emergency Provider Nurse Practitioner; PCP Family Medicine
DX: U07.1 COVID-19 (principal); J32.9 Chronic sinusitis, unspecified; F17.210 Nicotine dependence, cigarettes, uncomplicated
CPT/HCPCS: 87880; 99202; G0463; U0003

== ENCOUNTER 2021-04-25 11:56 | Emergency (ER) | payer BC, SELFPAY ==
[2021-04-25 14:30] VITALS: BP 138/93; PULSE 73; RESP 18; TEMP 36.9; O2SAT 98; BMI 32.0
--- NOTE | 2021-04-25 15:13 | HMH.EDUTC ---
[facility] [place]ression: Strep throat Disposition: Home, Self-Care Condition on Discharge: Good Instructions: DI for Strep Throat, Strep Throat, Amoxicillin Additional Instructions: *Monitor Temp, Over the counter Motrin or Tylenol as directed/as needed Tylenol every 4 hours and Motrin every 6 hours (as long as your family doctor has told you that you can take it) for fever or pain. and straight to ER if unable to lower temp less than 101.0 after medication given *Warm salt water gargles may help to soothe the throat *Throat Lozenges *Warm fluids like tea with honey may help to soothe the throat *Sleep elevated *Humidifier/Vaporizer *Flonase 2 sprays in each nostril daily but be aware that it may take 2-3 days before you notice improvement Take antibiotics as prescribed Follow up IMMEDIATELY for new or worsening symptoms or no Noticeable improvement over the next 48-72 hours. 911 for difficulty breathing or swallowing Prescriptions: Amoxicillin [Amoxicillin 875MG Tab] 875 mg PO Q12H #20 tab Transmission Status: Pending to [facility] Fluticasone Propionate [Flonase 50mcg nasal spray 16gm] 1 spr NS DAILY #1 each Transmission Status: Pending to [facility] Referrals: Micheal Roberson MD [Primary Care Provider] - As needed Time of Disposition: 15:17 Medical Decision Making - Andi Inquiry Pt receiving controlled substance: No Andi was queried for this patient: No Vital Signs: 04/25/21 14:30 Temperature 98.4 F Temperature Source Oral Pulse Rate [Right Brachial] 73 Respiratory Rate 18 Blood Pressure [Right Arm] 138/93 H Blood Pressure Mean [Right Arm] 108 Blood Pressure Source [Right Arm] Automatic Cuff Blood Pressure Position [Right Arm] Sitting 02 Sat by Pulse Oximetry 98 Oxygen Delivery Method Room Air - Lab Data Lab results reviewed: Yes: I reviewed the patient's lab results. [facility] [place] - General Stated complaint: Sore throat,head congestion, Time Seen by Provider: 04/25/21 15:14 Mode of Arrival: Ambulatory Source of Information: Patient Limitations: No Limitations Description of Symptoms (Recalled from Triage Doc. by RN): PATIENT C/O RUNNY NOSE, COUGH, SORE THROAT, AND CONGESTION HEENT Symptoms (Recalled from RN notes): Yes Resp Symptoms (Recalled from RN notes): No Skin Symptoms (Recalled from RN notes): No MS Symptoms (Recalled from RN notes): No Functional Status (Recalled from RN notes): wnl - History of Present Illness Provider Complaint: Patient states that he feels like he may have strep throat States that he has been having runny nose, sore throat and cough State that his significant other and child is having similar symptoms - Related Data Previous Rx's Medication Instructions Recorded Albuterol Sulfate [Proventil-HFA 1 - 2 puffs IH Q4HP PRN #1 inh 01/05/21 90mcg/puff Inh] Azithromycin [Z-Corey 250mg Tab] 250 mg PO DIRECTED #6 tab 01/05/21 guaiFENesin [Mucinex 600mg tablet] 1 - 2 tab PO Q12H PRN #20 01/05/21 tab.er.12h methylPREDNISolone [Medrol 4mg 4 mg PO DIRECTED #21 tab 01/05/21 tab] Amoxicillin [Amoxicillin 875MG 875 mg PO Q12H #20 tab 04/25/21 Tab] Fluticasone Propionate [Flonase 1 spr NS DAILY #1 each 04/25/21 50mcg nasal spray 16gm] Allergies Allergy/AdvReac Type Severity Reaction Status Date / Time No Known Allergies Allergy Verified 05/15/19 21:38 - Worker's Comp Is this a Worker's Comp case?: No [facility] History - Hepatitis A Screen Drug use history?: No High risk sexual behaviors?: No History of sexually transmitted infection?: No Currently employed?: No Childcare worker?: No Do you have indoor plumbing?: Yes Do you have electricity?: Yes Attestation statement:: This patient has been screened for Hepatitis A risk factors. I have reviewed the patient's past medical history: Yes Medical History: Denies:: Cancer, Diabetes Mellitus Type 1, Diabetes Mellitus Type 2, M
[2021-04-25 15:18] VITALS: BP 138/93; PULSE 73; RESP 18; TEMP 36.9; O2SAT 98
[2021-04-25 22:17] LABS: UTC Strep Screen (Rapid) Positive (Negative)
== END 2021-04-25 15:39 | disposition home or self-care (01) ==
PROVIDERS: Emergency Provider Nurse Practitioner; PCP Family Medicine
DX: J02.0 Streptococcal pharyngitis (principal)
CPT/HCPCS: 87880; 99202; G0463

== ENCOUNTER 2021-09-07 09:31 | Emergency (ER) | payer BC, SELFPAY ==
[2021-09-07 10:56] VITALS: BP 139/86; PULSE 92; RESP 18; TEMP 36.9; O2SAT 98; BMI 32.5
--- NOTE | 2021-09-07 10:56 | HMH.EDUTC ---
[facility] [place] Clinical Impression: Bronchitis, Viral syndrome Disposition: Home, Self-Care Condition on Discharge: Good Instructions: Acute Bronchitis, DI for Acute Bronchitis, DI for COVID-19 (Suspected or Confirmed ), Preventing the Spread of Coronavirus Discharge Instructions Additional Instructions: Drink plenty of fluids. Take tylenol or ibuprofen for pain or fever. Take the medications as directed. Follow up with your regular doctor. GO TO THE ER FOR ANY WORSENING SYMPTOMS The cough medication (promethazine dm) will make you drowsy, so don't drive or operate heavy machinery after taking it. I encourage you to get tested for covid-19. If you are getting worse instead of better, please make sure you get tested and watch your breathing. Go to the ER for worsening shortness of breath. Prescriptions: Promethazine/Dextromethorphan [Promethazine-Dm Syrup] 5 ml PO Q6HP PRN #240 ml PRN Reason: Cough Transmission Status: Received by [facility] methylPREDNISolone [Medrol] 4 mg PO DIRECTED 6 Days #21 packet Transmission Status: Received by [facility] Azithromycin [Z-Corey 250mg Tab*] 250 mg PO UD DOSE PK #6 tab Transmission Status: Received by [facility] Referrals: Micheal Roberson MD [Primary Care Provider] - Forms: Work/School Release Medical Decision Making - Medical Records Medical records reviewed: No: I reviewed the patient's medical records. - Andi Inquiry Pt receiving controlled substance: No Vital Signs: 09/07/21 10:56 09/07/21 11:14 Temperature 98.5 F 98.5 F Temperature Source Oral Pulse Rate 98 H Pulse Rate [Left] 92 H Respiratory Rate 18 18 Blood Pressure 139/86 Blood Pressure [Right Arm] 139/86 Blood Pressure Mean [Right Arm] 103 02 Sat by Pulse Oximetry 98 Medical Decision Narrative: He adamantly refuses any covid, influenza or strep testing today. [facility] [place] - General Stated complaint: fever, sore throat, cough, MARQUEZ, congestion Time Seen by Provider: 09/07/21 10:56 - History of Present Illness Provider Complaint: He c/o havign a cough, chest congestion, sinus congestion and body aches for the past 2 days. - Related Data Previous Rx's Medication Instructions Recorded Albuterol Sulfate [Proventil-HFA 1 - 2 puffs IH Q4HP PRN #1 inh 01/05/21 90mcg/puff Inh] Azithromycin [Z-Corey 250mg Tab] 250 mg PO DIRECTED #6 tab 01/05/21 guaiFENesin [Mucinex 600mg tablet] 1 - 2 tab PO Q12H PRN #20 01/05/21 tab.er.12h methylPREDNISolone [Medrol 4mg 4 mg PO DIRECTED #21 tab 01/05/21 tab] Amoxicillin [Amoxicillin 875MG 875 mg PO Q12H #20 tab 04/25/21 Tab] Fluticasone Propionate [Flonase 1 spr NS DAILY #1 each 04/25/21 50mcg nasal spray 16gm] Azithromycin [Z-Corey 250mg Tab*] 250 mg PO UD DOSE PK #6 tab 09/07/21 Promethazine/Dextromethorphan 5 ml PO Q6HP PRN #240 ml 09/07/21 [Promethazine-Dm Syrup] methylPREDNISolone [Medrol] 4 mg PO DIRECTED 6 Days #21 09/07/21 packet Allergies Allergy/AdvReac Type Severity Reaction Status Date / Time No Known Allergies Allergy Verified 05/15/19 21:38 [facility] History - Hepatitis A Screen Attestation statement:: This patient has been screened for Hepatitis A risk factors. I have reviewed the patient's past medical history: Yes Medical History: Denies:: Cancer, Diabetes Mellitus Type 1, Diabetes Mellitus Type 2, MRSA Laterality Cases: Bilateral: Tonsillectomy Amputation: No Fractures: No - Social History Smoking Status: Current every day smoker Tobacco Type: cigarettes # Packs/Day (cigarettes): 1 Alcohol Intake: never Alcohol Intake Frequency:: a few times a month Occupational Status: other ROS Obtained: Yes All systems reviewed & no additional complaints - Constitutional Constitutional: Reports as per HPI - Eyes Eyes: Denies eye discharge - ENT Ears, Nose, Mouth, and Throat: Reports as per HPI - Cardiovascular
[2021-09-07 11:14] VITALS: BP 139/86; PULSE 98; RESP 18; TEMP 36.9
== END 2021-09-07 11:15 | disposition home or self-care (01) ==
PROVIDERS: Emergency Provider Nurse Practitioner Family; PCP Family Medicine
DX: U07.1 COVID-19 (principal); J20.9 Acute bronchitis, unspecified; F17.210 Nicotine dependence, cigarettes, uncomplicated
CPT/HCPCS: 99202; G0463

== ENCOUNTER 2022-03-22 10:12 | Emergency (ER) | payer BC, SELFPAY ==
[2022-03-22 10:26] VITALS: BP 132/84; PULSE 61; RESP 18; TEMP 37; O2SAT 97; BMI 29.5
--- NOTE | 2022-03-22 10:27 | HMH.EDUTC ---
[facility] – [place] Dis[place] Clinical Impression: Strep throat Disposition: Home, Self-Care Condition on Discharge: Good Instructions: DI for Viral Pharyngitis, DI for Viral Syndrome Additional Instructions: Drink plenty of fluids. Take tylenol or ibuprofen for pain or fever. Take the medications as directed. Follow up with your regular doctor. GO TO THE ER FOR ANY WORSENING SYMPTOMS Throw your tooth brush away and get a new one. Prescriptions: Brompheniramine/Pseudoephed/Dm [Bromfed Dm Cough Syrup] 5 ml PO Q6HP PRN #240 ml PRN Reason: Cough Transmission Status: Received by [facility] Ibuprofen [Ibuprofen 400mg Tablet] 400 mg PO Q6HP PRN #30 tab PRN Reason: Moderate Pain Transmission Status: Received by [facility] Amoxicillin [Amoxicillin 500mg Tab] 500 mg PO TID 10 Days #30 tab Transmission Status: Received by [facility] Referrals: Micheal Roberson MD [Primary Care Provider] - Forms: Work/School Release Time of Disposition: 10:43 Medical Decision Making - Medical Records Medical records reviewed: No: I reviewed the patient's medical records. - Andi Inquiry Pt receiving controlled substance: No Vital Signs: 03/22/22 10:26 03/22/22 10:48 Temperature 98.6 F 98.6 F Temperature Source Oral Pulse Rate 61 Pulse Rate [Left] 61 Respiratory Rate 18 18 Blood Pressure 132/84 Blood Pressure [Right Arm] 132/84 Blood Pressure Mean [Right Arm] 100 02 Sat by Pulse Oximetry 97 - Lab Data Lab results reviewed: Yes: I reviewed the patient's lab results. Lab Results 03/22/22 10:31: Strep Scn Rapid Clinic Positive A Orders (Tests/Meds): ORDERS Category Date Time Status Covid-19 Nasal PCR ([facility]) Routine Lab 03/22/22 10:51 Received [facility] [place] HPI - General Stated complaint: fever Time Seen by Provider: 03/22/22 10:27 - History of Present Illness Provider Complaint: He states that he has had low grade fever, sore throat, chills, and body aches for the past 2 days. He was exposed to covid-19 by his son having in their home. - Related Data Previous Rx's Medication Instructions Recorded Albuterol Sulfate [Proventil-HFA 1 - 2 puffs IH Q4HP PRN #1 inh 01/05/21 90mcg/puff Inh] Azithromycin [Z-Corey 250mg Tab] 250 mg PO DIRECTED #6 tab 01/05/21 guaiFENesin [Mucinex 600mg tablet] 1 - 2 tab PO Q12H PRN #20 01/05/21 tab.er.12h methylPREDNISolone [Medrol 4mg 4 mg PO DIRECTED #21 tab 01/05/21 tab] Amoxicillin [Amoxicillin 875MG 875 mg PO Q12H #20 tab 04/25/21 Tab] Fluticasone Propionate [Flonase 1 spr NS DAILY #1 each 04/25/21 50mcg nasal spray 16gm] Azithromycin [Z-Corey 250mg Tab*] 250 mg PO UD DOSE PK #6 tab 09/07/21 Promethazine/Dextromethorphan 5 ml PO Q6HP PRN #240 ml 09/07/21 [Promethazine-Dm Syrup] methylPREDNISolone [Medrol] 4 mg PO DIRECTED 6 Days #21 09/07/21 packet Amoxicillin [Amoxicillin 500mg Tab] 500 mg PO TID 10 Days #30 tab 03/22/22 Brompheniramine/Pseudoephed/Dm 5 ml PO Q6HP PRN #240 ml 03/22/22 [Bromfed Dm Cough Syrup] Ibuprofen [Ibuprofen 400mg 400 mg PO Q6HP PRN #30 tab 03/22/22 Tablet] Allergies Allergy/AdvReac Type Severity Reaction Status Date / Time No Known Allergies Allergy Verified 03/22/22 10:29 [facility] History - Hepatitis A Screen Attestation statement:: This patient has been screened for Hepatitis A risk factors. I have reviewed the patient's past medical history: Yes Medical History: Denies:: Cancer, Diabetes Mellitus Type 1, Diabetes Mellitus Type 2, MRSA Laterality Cases: Bilateral: Tonsillectomy Amputation: No Fractures: No - Social History Smoking Status: Current every day smoker Tobacco Type: cigarettes # Packs/Day (cigarettes): 1 Alcohol Intake: never Alcohol Intake Frequency:: a few times a month Occupational Status: other ROS Obtained: Yes All systems reviewed & no additional complaints - Constitutional Constitutio
[2022-03-22 10:41] LABS: UTC Strep Screen (Rapid) Positive (Negative)
[2022-03-22 10:48] VITALS: BP 132/84; PULSE 61; RESP 18; TEMP 37
== END 2022-03-22 10:52 | disposition home or self-care (01) ==
PROVIDERS: Emergency Provider Nurse Practitioner Family; PCP Family Medicine
DX: J02.0 Streptococcal pharyngitis (principal)
CPT/HCPCS: 87880; 99212; C9803; G0463; U0003; U0005

== ENCOUNTER 2022-05-10 08:10 | Emergency (ER) | payer BC, OTHER, SELFPAY ==
[2022-05-10 08:11] VITALS: BP 137/74; PULSE 63; RESP 19; TEMP 36.8; O2SAT 98; BMI 35.4
[2022-05-10 08:17] VITALS: BP 137/74; PULSE 57; RESP 18; O2SAT 98
--- NOTE | 2022-05-10 08:34 | HMH.EDABDPAI ---
Discharge Plan Disposition Patient Disposition: Home, Self-Care Condition: Good Prescriptions Prescriptions: New ondansetron 4 mg Tablet,Disintegrating 4 mg PO Q8H PRN (Reason: Nausea) Qty: 15 0RF loperamide [Imodium A-D] 2 mg capsule 2 mg PO Q2H MDD 12 caps PRN (Reason: loose stool) Qty: 30 0RF Rx Instructions: until patient has gone 12 hours without a bowel movement No Action azithromycin 250 MG tablet 250 mg PO DIRECTED Qty: 6 0RF Rx Instructions: Take two (2) tablets on day #1, then one (1) tablet day #2 thru #5 methylprednisolone 4 MG tablet 4 mg PO DIRECTED Qty: 21 0RF Rx Instructions: Take as directed on package instructions albuterol sulfate 200 PUFFS HFA aerosol inhaler 1 - 2 puffs IH Q4HP PRN (Reason: Shortness Of Breath) Qty: 1 0RF guaifenesin 600 MG tablet extended release 12hr 1 - 2 tab PO Q12H PRN (Reason: Congestion) Qty: 20 0RF amoxicillin 875 MG tablet 875 mg PO Q12H Qty: 20 0RF fluticasone propionate 120 SPR/BOT bottle 1 spr NS DAILY Qty: 1 0RF Rx Instructions: each nostril daily promethazine-DM 120 ML syrup 5 ml PO Q6HP PRN (Reason: Cough) Qty: 240 0RF azithromycin 250 MG tablet 250 mg PO UD DOSE PK Qty: 6 0RF Rx Instructions: Take two (2) tablets today, then one (1) tablet days #2 thru #5 methylprednisolone 4 MG tablets,dose pack 4 mg PO DIRECTED 6 Days Qty: 21 0RF ibuprofen 400 MG tablet 400 mg PO Q6HP PRN (Reason: Moderate Pain) Qty: 30 0RF amoxicillin 500 MG tablet 500 mg PO TID 10 Days Qty: 30 0RF zsvlyooxvashqfz-rxszzllnj-QA 118 ML syrup 5 ml PO Q6HP PRN (Reason: Cough) Qty: 240 0RF Referrals Follow up/Referrals: Micheal Roberson MD [Primary Care Provider] - See instructions Activity Restrictions/Add. Instructions Additional Instructions/Restrictions: Return for worsening abdominal pain vomiting or any other concerns within 8 hours otherwise follow-up with your primary care physician within the next few days. Clinical Impressions Clinical Impression: Diarrhea Instructions Patient Instructions: DI for Diarrhea and Traveler's Diarrhea -- Adult, DI for Diarrhea and Traveler's Diarrhea -- Child, DI for Nausea -- Adult, DI for Nausea -- Child Discharge ED Provider: David Armenta Abdominal Pain HPI General Chief Complaint: Nausea/Vomiting/Diarrhea Stated Complaint: Vomitting, diarreah, bloated stomach Time Seen by Provider: 05/10/22 08:34 History of Present Illness HPI narrative: 26-year-old male presents with abdominal pain vomiting and diarrhea for 3 days. He says that the abdominal pain is epigastric in nature associated with nausea vomiting and persistent watery diarrhea. He says he is having diarrhea every 20 minutes or so. No fever no chills. No dysuria. No chest pain abdominal pain is nonradiating and worse with eating. He does have history of GERD as well. He has tried Imodium for the diarrhea has not helped some however continues Related Data Previous Rx's Medication Instructions Recorded albuterol sulfate 90 mcg/actuation 1 - 2 puffs IH Q4HP PRN Shortness 01/05/21 aerosol inhaler Of Breath #1 inh azithromycin 250 mg tablet 250 mg PO DIRECTED #6 tabs 01/05/21 guaifenesin 600 mg tablet, 1 - 2 tab PO Q12H PRN Congestion 01/05/21 extended release 12 hr ##20 methylprednisolone 4 mg tablet 4 mg PO DIRECTED #21 tabs 01/05/21 amoxicillin 875 mg tablet 875 mg PO Q12H #20 tabs 04/25/21 fluticasone propionate 50 1 spr NS DAILY #1 ea 04/25/21 mcg/actuation nasal spray,suspension azithromycin 250 mg tablet 250 mg PO UD DOSE PK #6 tabs 09/07/21 methylprednisolone 4 mg tablets in 4 mg PO DIRECTED 6 days #21 09/07/21 a dose pack packets promethazine-DM 6.25 mg-15 mg/5 mL 5 ml PO Q6HP PRN Cough #240 mL 09/07/21 oral syrup amoxicillin 500 mg tablet 500 mg PO TID 10 days #30 tabs 03/22/22 xzpwizmsctwpyor-shxuimgaifzbbzp-VC 5 ml PO Q6HP PRN Cough #24
--- NOTE | 2022-05-10 08:45 | PC.NURSE ---
pt up to the bathroom, attempting to give a stool sample
[2022-05-10 08:53] LABS: Basophils # 0.2 K/mm3 (0-0.2); Basophils % 2.7 % (0.1-2.0); Eosinophils # 0.1 K/mm3 (0.0-0.4); Eosinophils % 1.6 % (0.1-12.0); Hemoglobin 17.2 g/dL (14.1-18.0); Lymphocytes # 1.9 K/mm3 (0.7-4.5); Mean Corpuscular HGB Conc 32.4 g/dL (31.8-35.4); Mean Corpuscular Hemoglobin 31.5 pg (27.0-31.2); Mean Corpuscular Volume 97.4 fl (80-94); Mean Platelet Volume 8.2 fl (7.4-10.4); Monocytes # 0.5 K/mm3 (0.1-1.0); Monocytes % 5.8 % (1.7-9.3); Neutrophils # 5.2 K/mm3 (1.8-7.8); Neutrophils % 65.8 % (37.0-80.0); Platelet Count 238 K/mm3 (142-424); Red Blood Count 5.44 M/mm3 (4.60-6.20); Red Cell Distribution Width 13.1 % (11.5-17.5); White Blood Count 7.8 K/mm3 (4.8-10.8)
--- NOTE | 2022-05-10 09:00 | PC.NURSE ---
unable to provide stool sample at the time
[2022-05-10 09:02] LABS: Alanine Aminotransferase 115 U/L (12-78); Albumin Level 4.3 g/dl (3.5-5.0); Albumin/Globulin Ratio 1.7 (1.1-1.8); Alkaline Phosphatase 137 U/L (38-126); Anion Gap 14.6 mEq/L (5-15); Aspartate Amino Transferase 51 U/L (17-59); Bilirubin,Total 0.3 mg/dl (0.2-1.3); Blood Urea Nitrogen 16 mg/dl (9-20); Carbon Dioxide 24 mmol/L (22.0-30.0); Chloride 104 mmol/L (98-107); Creatinine Clearance Estimated 217 mL/min (50-200); Estimated Glomerular Filt Rate 118 ml/min (>60); GFR (African American) 143 ML/MIN (>60); Globulin 2.6 g/dL (1.3-3.2); Glucose 103 mg/dl (74-100); Lipase 37 U/L (23-300); Potassium 4.6 mmoL/L (3.5-5.1); Sodium 138 mmol/L (136-145); Total Protein,Serum 6.9 g/dl (6.3-8.2)
--- NOTE | 2022-05-10 09:23 | ECG_ITS ---
APPROVED REPORT Exam: Resting ECG HR:53 bpm ECG Measurements Heart Rate 53 AXES CO 143 P 11 QRSd 104 QRS 83 QT 399 T 35 QTc 383 Conclusion SINUS BRADYCARDIA BORDERLINE ECG UNCONFIRMED REPORT Electronically signed by : Micheal Chaudhry MD 05/10/2022 17:41:55
[2022-05-10 10:19] VITALS: BP 96/56; PULSE 52; O2SAT 99
[2022-05-10 10:25] VITALS: BP 100/60; PULSE 54; RESP 20; TEMP 36.8; O2SAT 100
== END 2022-05-10 10:28 | disposition home or self-care (01) ==
PROVIDERS: Emergency Provider Emergency Medicine; PCP Family Medicine
DX: R11.2 Nausea with vomiting, unspecified (principal); R19.7 Diarrhea, unspecified; R10.13 Epigastric pain
CPT/HCPCS: 80053; 83690; 85025; 93005; 96361; 96374; 99284; J2405

== ENCOUNTER 2022-07-16 16:14 | Emergency (ER) | payer BC, SELFPAY ==
[2022-07-16 16:40] VITALS: BP 160/84; PULSE 71; RESP 20; TEMP 36.9; O2SAT 98; BMI 32.5
--- NOTE | 2022-07-16 17:25 | HMH.EDGENADL ---
Discharge Plan Disposition Patient Disposition: Home, Self-Care Condition: Good Prescriptions Prescriptions: New amoxicillin 875 mg tablet 875 mg PO BID Qty: 20 0RF No Action azithromycin 250 MG tablet 250 mg PO DIRECTED Qty: 6 0RF Rx Instructions: Take two (2) tablets on day #1, then one (1) tablet day #2 thru #5 methylprednisolone 4 MG tablet 4 mg PO DIRECTED Qty: 21 0RF Rx Instructions: Take as directed on package instructions albuterol sulfate 200 PUFFS HFA aerosol inhaler 1 - 2 puffs IH Q4HP PRN (Reason: Shortness Of Breath) Qty: 1 0RF guaifenesin 600 MG tablet extended release 12hr 1 - 2 tab PO Q12H PRN (Reason: Congestion) Qty: 20 0RF amoxicillin 875 MG tablet 875 mg PO Q12H Qty: 20 0RF fluticasone propionate 120 SPR/BOT bottle 1 spr NS DAILY Qty: 1 0RF Rx Instructions: each nostril daily promethazine-DM 120 ML syrup 5 ml PO Q6HP PRN (Reason: Cough) Qty: 240 0RF azithromycin 250 MG tablet 250 mg PO UD DOSE PK Qty: 6 0RF Rx Instructions: Take two (2) tablets today, then one (1) tablet days #2 thru #5 methylprednisolone 4 MG tablets,dose pack 4 mg PO DIRECTED 6 Days Qty: 21 0RF ibuprofen 400 MG tablet 400 mg PO Q6HP PRN (Reason: Moderate Pain) Qty: 30 0RF amoxicillin 500 MG tablet 500 mg PO TID 10 Days Qty: 30 0RF vdpeboenbyepscf-lnbavzndn-HO 118 ML syrup 5 ml PO Q6HP PRN (Reason: Cough) Qty: 240 0RF ondansetron 4 mg Tablet,Disintegrating 4 mg PO Q8H PRN (Reason: Nausea) Qty: 15 0RF loperamide [Imodium A-D] 2 mg capsule 2 mg PO Q2H MDD 12 caps PRN (Reason: loose stool) Qty: 30 0RF Rx Instructions: until patient has gone 12 hours without a bowel movement Referrals Follow up/Referrals: Micheal Roberson MD [Primary Care Provider] - See instructions Activity Restrictions/Add. Instructions Additional Instructions/Restrictions: Drink plenty fluids. Tylenol as needed for discomfort. Follow-up with ear nose and throat if your symptoms do not improve. Consider outpatient Sudafed to help ease with left ear congestion and decreased hearing. Clinical Impressions Clinical Impression: Acute left otitis media Stand Alone Forms Stand Alone Forms: Work/School Release Instructions Patient Instructions: DI for Otitis Media (Middle Ear Infection)-Child Discharge ED Provider: Miguel Silverio General Adult HPI General Chief complaint: Ear Stated complaint: left ear infection, fever Time Seen by Provider: 07/16/22 17:08 Mode of Arrival: Ambulatory Source of Information: Patient Limitations: No Limitations Description of Symptoms (Recalled from ER Triage Doc. by RN): pt states that he has been having pain in his ears when he is outside working. states that issues with ears began when he attempted to clean them out with peroxide. since then it has been full feeling. unable to pop /relieve pressure in his ears. pt believes he has had a fever off and on. when he feels feverish he checks his temp, it is normal but then he begins to sweat. History of Present Illness HPI narrative: Patient presents with a 2-day history of left ear discomfort. He states he had recent upper respiratory symptoms including cough and congestion which have subsided. The ear discomfort persist and is noted diminished hearing from the left ear. Related Data Previous Rx's Medication Instructions Recorded albuterol sulfate 90 mcg/actuation 1 - 2 puffs IH Q4HP PRN Shortness 01/05/21 aerosol inhaler Of Breath #1 inh azithromycin 250 mg tablet 250 mg PO DIRECTED #6 tabs 01/05/21 guaifenesin 600 mg tablet, 1 - 2 tab PO Q12H PRN Congestion 01/05/21 extended release 12 hr ##20 methylprednisolone 4 mg tablet 4 mg PO DIRECTED #21 tabs 01/05/21 amoxicillin 875 mg tablet 875 mg PO Q12H #20 tabs 04/25/21 fluticasone propionate 50 1 spr NS DAILY #1 ea 04/25/21 mcg/actuation nasal spray,suspension azithromycin 250 mg tablet
[2022-07-16 17:55] VITALS: BP 156/104; PULSE 85; RESP 18; TEMP 36.6; O2SAT 95
== END 2022-07-16 17:56 | disposition home or self-care (01) ==
PROVIDERS: Emergency Provider Emergency Medicine; PCP Family Medicine
DX: H66.92 Otitis media, unspecified, left ear (principal); R50.9 Fever, unspecified; R06.02 Shortness of breath; R19.7 Diarrhea, unspecified; R61 Generalized hyperhidrosis; R09.81 Nasal congestion; R05.9 Cough, unspecified
CPT/HCPCS: 99283

== ENCOUNTER 2022-12-11 16:35 | Emergency (ER) | payer BC, OTHER, SELFPAY ==
[2022-12-11 17:00] VITALS: BP 117/79; PULSE 94; RESP 18; TEMP 37.1; O2SAT 97; BMI 32.5
--- NOTE | 2022-12-11 17:48 | EXP.UTC ---
Discharge Plan Disposition Patient Disposition: Home, Self-Care Condition: Good Prescriptions Prescriptions: New azithromycin [Zithromax Z-Corey] 250 mg tablet See Rx Instructions .ROUTE .COMPLEX 5 Days Qty: 6 0RF Rx Instructions: For 250 mg dose pack: take 500 mg today (day 1), then 250 mg for 4 days (days 2-5) methylprednisolone [Medrol (Corey)] 4 mg tablets,dose pack See Rx Instructions .Route .COMPLEX 6 Days Qty: 21 0RF Rx Instructions: taper pack; Referrals Follow up/Referrals: Micheal Roberson MD [Primary Care Provider] - See instructions Activity Restrictions/Add. Instructions Additional Instructions/Restrictions: *Monitor Temp, Over the counter Motrin or Tylenol as directed/as needed Tylenol every 4 hours and Motrin every 6 hours (as long as your family doctor has told you that you can take it) for fever or pain. and straight to ER if unable to lower temp less than 101.0 after medication given *Warm salt water gargles may help to soothe the throat *Throat Lozenges? *Warm fluids like tea with honey may help to soothe the throat? *Sleep elevated *Humidifier/Vaporizer Follow up IMMEDIATELY for new or worsening symptoms or no Noticeable improvement over the next 48-72 hours. 911 for difficulty breathing or swallowing Clinical Impressions Clinical Impression: Sinusitis Instructions Patient Instructions: DI for Sinusitis, Sinusitis Discharge ED Provider: [facility] General Stated complaint: runny nose, congestion, cough, fever Mode of Arrival: Ambulatory Source of Information: Patient Limitations: No Limitations Time Seen by Provider: 12/11/22 17:48 Description of Symptoms (Recalled from Triage Doc. by RN): cold symptoms green snot, fever, and loss of appetite HEENT Symptoms (Recalled from RN notes): Yes Resp Symptoms (Recalled from RN notes): No Skin Symptoms (Recalled from RN notes): No MS Symptoms (Recalled from RN notes): No Functional Status (Recalled from RN notes): n/a History of Present Illness Provider Complaint: Patient states that for close to week he has been having sinus pain and pressure, feeling of fullness in ears, drainage in back of throat feeling feverish and over all not feeling well so he came in Related Data Previous Rx's Medication Instructions Recorded azithromycin 250 mg tablet See Rx Instructions PO .COMPLEX 5 12/11/22 (Zithromax Z-Corey) days #6 tabs methylprednisolone 4 mg tablets in See Rx Instructions .Route 12/11/22 a dose pack (Medrol (Corey)) .COMPLEX 6 days #21 tabs Allergies Allergy/AdvReac Type Severity Reaction Status Date / Time No Known Allergies Allergy Verified 12/11/22 17:38 Worker's Comp Is this a Worker's Comp case?: No PFSH PFS Disclaimer: The information contained in this section may have been updated after the patient was seen, as this information can be updated by other users. Social History Smoking Status: Never smoker alcohol intake: never current occupational status: other Travel in the last 8 weeks: None ROS Obtained: Yes All systems reviewed & no additional complaints except as documented and Yes Systems reviewed as appropriate & no additional complaints except as documented Constitutional Constitutional: Reports system reviewed and no additional complaints, except as documented, Reports as per HPI, Reports fever(s) and Reports headache(s) ENT Ears, Nose, Mouth, and Throat: Reports system reviewed and no additional complaints, except as documented, Reports as per HPI, Reports headache(s), Reports sinus pain and Reports sinus pressure Cardiovascular Cardiovascular: Reports system reviewed and no additional complaints, except as documented and Reports as per HPI Respiratory Respiratory: Reports system reviewed and no additional complaints, except as documented, Reports as per HPI and Reports cough Gastrointestinal G
[2022-12-11 18:01] VITALS: BP 117/79; PULSE 94; RESP 18; TEMP 37.1; O2SAT 97
== END 2022-12-11 18:01 | disposition home or self-care (01) ==
PROVIDERS: Emergency Provider Nurse Practitioner; PCP Family Medicine
DX: J01.90 Acute sinusitis, unspecified (principal); R50.9 Fever, unspecified
CPT/HCPCS: 99212; 99214; G0463

== ENCOUNTER 2023-03-08 20:56 | Emergency (ER) | payer SELFPAY ==
[2023-03-08 21:07] VITALS: BP 132/78; PULSE 77; RESP 16; TEMP 36.6; O2SAT 97; BMI 35.4
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
[2023-03-08 21:51] VITALS: BP 116/75; PULSE 71; RESP 16; TEMP 36.6; O2SAT 97
== END 2023-03-08 21:52 | disposition home or self-care (01) ==
PROVIDERS: Emergency Provider Emergency Medicine; PCP Family Medicine
DX: R07.81 Pleurodynia (principal); W16.132A Fall into natural body of water striking side causing other injury, initial encounter; F17.210 Nicotine dependence, cigarettes, uncomplicated
CPT/HCPCS: 99283

== ENCOUNTER 2025-02-05 11:46 | Emergency (ER) | payer SELFPAY ==
[2025-02-05 11:59] VITALS: BP 156/106; PULSE 76; RESP 20; TEMP 36.7; O2SAT 98; BMI 35.4
[2025-02-05 12:01] VITALS: BP 160/87; PULSE 64; O2SAT 97
--- NOTE | 2025-02-05 12:05 | ED_ITS ---
<Statement entered by Alexandra Roman MD - 02/05/25 15:34> I was consulted by the FERMIN, and we discussed the complexity of the problems being addressed. I approved the treatment and management plan for this patient's care in the emergency department, thus performing a substantive portion of the medical decision making. Alexandra Roman MD, ZEINA, FACEP Discharge Plan Disposition Patient Disposition: Home, Self-Care Condition: Good Prescriptions Prescriptions: No Action naproxen 500 mg tablet 500 mg PO Q8H PRN (Reason: pain) Qty: 20 0RF methocarbamol 750 mg tablet 750 mg PO Q8H PRN (Reason: pain) Qty: 20 0RF Referrals Follow up/Referrals: Provider,Referral, MD [Primary Care Provider, Medical] - See instructions Activity Restrictions/Add. Instructions Additional Instructions/Restrictions: Please return to the emergency department with any worsening signs or symptoms, please follow-up with your family doctor in the upcoming days/weeks, I recommend good hydration, good intake with oral fluids and solids. Most likely you had a viral illness, that has since resolved, I recommend rest and return to work on Sunday. Clinical Impressions Clinical Impression: Viral syndrome, Light-headedness Stand Alone Forms Stand Alone Forms: Work/School Release Instructions Patient Instructions: Diarrhea Print Language Print Language: Frisian Discharge ED Provider: Alexandra Roman General Adult HPI General Chief complaint: Nausea/Vomiting/Diarrhea Stated complaint: dizzy, V/D Time Seen by Provider: 02/05/25 11:53 Mode of Arrival: Ambulatory Source of Information: Patient Description of Symptoms (Recalled from ER Triage Doc. by RN): pt is here bc he has been vomiting/diarrhea x 4 days and was dizzy today at work and they sent him to get clearence, pt thinks he is just dehydrated. History of Present Illness HPI narrative: 29-year-old male presents to the emergency department with nausea vomiting diarrhea started on Sunday, improvement yesterday, patient states he got dizzy and lightheaded , at work today, has had some intermittent lightheadedness, no true vertiginous dizziness type symptomatology, since yesterday, denies any presyncopal or syncopal episode, no dizziness currently, no fever no chills, recent sick contact being daughter , who had strep throat , denies any abdominal pain, denies any nausea or vomiting currently, diarrhea has since subsided since yesterday, denies urinary type symptomatology, denies any chest pain, no shortness of breath, no dizziness currently. Patient denies any alcohol use, admits to tobacco use (vapes), or drug use, has no other real relevant past medical history takes no other medication at home upon chart review does have history of GERD. Initial triage vitals unremarkable. Of note patient states I think I am just dehydrated I would really just want a glass of water and a work note. I do not want an IV or any medications because you can give me a big bill for this . Related Data Previous Rx's ?Medication ?Instructions ?Recorded methocarbamol 750 mg tablet 750 mg PO Q8H PRN pain #20 tabs 03/08/23 naproxen 500 mg tablet 500 mg PO Q8H PRN pain #20 t abs 03/08/23 Allergies Allergy/AdvReac Type Severity Reaction Status Date / Time No Known Allergies Allergy Verified 03/08/23 21:11 [facility] Disclaimer: The information contained in this section may have been updated after the patient was seen, as this information can be updated by other users. Social History Smoking Status: Current every day smoker tobacco type: cigarettes packs per day: 1 alcohol intake: current alcohol intake frequency: a few times a month current occupational status: other Travel in the last 8 weeks?: None Have you lived/traveled outside [place] in past 30 days?: No Contact w/someone who lives/traveled outside [place] past 30 days?: No Exposure to someone with infectious disease in past 14 days?: No Do you have a fever (greater than 100.4 F or 38 C)?: No Have you tested positive for COVID-19?: No Exposed to someone with COVID-19 in past 14 days?: No Do you have a sore throat?: No Do you have a cough?: No Do you have any weakness?: No Do you have any diarrhea?: Yes Are you experiencing any unusual bleeding?: No Do you have any muscle aches/pain?: No Do you have any abdominal pain?: No Are you experiencing loss of taste or smell?: No Other Medical History Have you received the Flu Vaccine for this season: No Have you received the Pneumonia Vaccine: No ROS Obtained: Yes All systems reviewed & no additional complaints except as documented Physical Exam General General appearance: alert and in no apparent distress Head Head exam: atraumatic and normocephalic Eye Eye exam: Present PERRL and EOMI ENT ENT exam: Present mucous membranes moist Neck Neck exam: Present normal inspection Chest Chest inspection: Present normal inspection and symmetric chest wall rise Respiratory Respiratory exam: Present normal lung sounds bilaterally; Absent respiratory distress Cardiovascular Cardiovascular exam: Present regular rate and normal rhythm Abdominal Exam Abdominal exam: Present soft; Absent tenderness Extremities Exam Extremities exam: Present normal inspection Neurological Exam Neurological exam: Present alert and oriented X3 Psychiatric Psychiatric exam: Present normal affect Skin Skin exam: Present warm and dry Medical Decision Making Medical Records Medical records reviewed: Yes I reviewed the patient's medical records. Screening: Per USPSTF and CDC recommendations, given the prevalence of disease in our region, it is our hospital?s policy to screen for HIV and viral Hepatitis for all patients aged 18 and over and those with ongoing risk factors. Andi Inquiry Pt receiving controlled substance: No Andi was queried for this patient: No Vital Signs: 02/05/25 11:59 02/05/25 12:01 02/05/25 12:20 Temperature 98.1 F Temperature Source Oral Pulse Rate 64 83 Pulse Rate [Left Radial] 76 Respiratory Rate 20 Blood Pressure 160/87 H 160/87 H Blood Pressure [Right Arm] 156/106 H Blood Pressure Mean 113 Blood Pressure Mean [Right Arm] 122 02 Sat by Pulse Oximetry 98 97 97 Oxygen Delivery Method Room Air Room Air 02/05/25 12:35 Temperature Temperature Source Pulse Rate 62 Pulse Rate [Left Radial] Respiratory Rate Blood Pressure 150/93 H Blood Pressure [Right Arm] Blood Pressure Mean 105 Blood Pressure Mean [Right Arm] 02 Sat by Pulse Oximetry 98 Oxygen Delivery Method Lab Data Lab results reviewed: Yes I reviewed the patient's lab results. Lab Results 02/05/25 12:35: WBC 8.4, RBC 5.48, Hgb 16.8, Hct 50.3, MCV 91.8, MCH 30.7, MCHC 33.4, RDW 12.2, Plt Count 252, MPV 10.6 H, Neut % (Auto) 53.4, Lymph % (Auto) 37.6, [place] % (Auto) 5.9, Eos % (Auto) 2.5, Baso % (Auto) 0.5, Neut # (Auto) 4.5, Lymph # (Auto) 3.2, [place] # (Auto) 0.5, Eos # (Auto) 0.2, Baso # (Auto) 0.0, Sodium 140, Potassium 3.9, Chloride 105, Carbon Dioxide 30, Anion Gap 8.9, BUN 15, Creatinine 0.80, Estimated Creat Clear 212, Estimated GFR 115, Est GFR ( Amer) 139, Glucose 111 H, Calcium 9.3, Total Bilirubin 0.4, AST 37, ALT 44, Alkaline Phosphatase 85, Troponin I < 0.01, NT-Pro-B Natriuret Pep 28.7, Total Protein 7.6, Albumin 4.8, Globulin 2.8, Albumin/Globulin Ratio 1.7 02/05/25 12:44: Urine Color Yellow, Urine Appearance Clear, Urine pH 7.0, Ur Specific Alexander <= 1.005, Urine Protein Negative, Urine Glucose (UA) Negative, Urine Ketones Negative, Urine Blood Negative, Urine Nitrate Negative, Urine Bilirubin Negative, Urine Urobilinogen 0.2, Ur Leukocyte Esterase Negative 02/05/25 12:35 02/05/25 12:35 Orders (Tests/Meds): ED MEDICATIONS Generic Name Dose Route Start Last Admin Trade Name Freq PRN Reason Stop Dose Admin Lactated Ringer's 1,000 mls @ 999 mls/hr 02/05/25 12:21 02/05/25 12:39 Lactated Ringer's 1000 Ml Bag IV 02/05/25 13:21 999 mls/hr .Q1H1M ONE Administration ORDERS Category Date Time Status Complete Blood Count Auto Diff Stat Lab 02/05/25 12:35 Completed Comprehensive Metabolic Panel Stat Lab 02/05/25 12:35 Completed NT Pro Brain Natriuretic Pep. Stat Lab 02/05/25 12:35 Completed Troponin I Q3H Lab 02/05/25 15:15 Ordered Troponin I Q3H Lab 02/05/25 18:15 Ordered Troponin I Stat Lab 02/05/25 12:35 Completed Urinalysis and Microscopic Stat Lab 02/05/25 12:44 Results Medical Decision Narrative: 29-year-old male presents the emergency department with several day history of nausea vomiting diarrhea which has not subsided, dizziness that has been intermittent since yesterday and today, differential diagnose include but not limited to cardiac arrhythmia, electrolyte disturbance, hypovolemia, peripheral vertigo among others. I along with the attending physician Dr. Roman saw and examined the patient at the bedside also had a long discussion with the patient at the bedside about regarding workup. Patient is quite concerned about insurance and payment, after much discussion, shared decision making was utilized and patient would like to proceed with workup. Thus, will obtain basic laboratory studies, EKG, proBNP, UA, troponin, will give 1 L IV LR. CBC unremarkable CMP is unremarkable, troponin within normal limits at less than 0.01, proBNP within normal limits. Urinalysis is notable for negative ketonuria, negative hematuria, negative nitrites, negative leukocyte esterase. I discussed the results with the patient at the bedside, patient is in agreement with current treatment plan/discharge plan. Patient will follow-up with PCP in the upcoming days/weeks, he will return to emergency with any worsening signs or symptoms. Patient has remained hemodynamically stable throughout his time in the emergency department, most likely patient had viral syndrome with diarrhea, possible acute dehydration that a cause of patient's lightheadedness or symptomatic/orthostatic hypotension, this is since resolved. Patient has no other red flag signs or symptoms. Critical Care Critical Care Time Critical Care Time: No
--- NOTE | 2025-02-05 12:08 | PC.NURSE ---
Pt refused the EKG. Told DR Roman and he said he would talk to the pt.
--- NOTE | 2025-02-05 12:19 | PC.NURSE ---
Provider at bed side.
[2025-02-05 12:20] VITALS: BP 160/87; PULSE 83; O2SAT 97
--- NOTE | 2025-02-05 12:21 | PC.NURSE ---
Pt refusing cardiac monitoroing at this time.
--- NOTE | 2025-02-05 12:22 | PC.NURSE ---
Dr Roman spoke with pt and pt now agrees to do EKG at this time
--- NOTE | 2025-02-05 12:26 | ECG_ITS ---
APPROVED REPORT Exam: Resting ECG HR:63 bpm ECG Measurements Heart Rate 63 AXES CO 137 P 44 QRSd 105 QRS 95 QT 391 T 21 QTc 398 Conclusion SINUS RHYTHM WITH SINUS ARRHYTHMIA BORDERLINE RIGHT AXIS DEVIATION [QRS AXIS > 90] BORDERLINE ECG UNCONFIRMED REPORT Electronically signed by : José Miguel Roman, 02/05/2025 15:38:32
[2025-02-05 12:35] VITALS: BP 150/93; PULSE 62; O2SAT 98
[2025-02-05] MEDS: LACTATED RINGERS 1000ML 1,000 ML 999 ML IV (12:39)
[2025-02-05 12:45] LABS: Basophils % 0.5 % (0.1-2.0); Eosinophils # 0.2 Kmm3 (0.0-0.4); Eosinophils % 2.5 % (0.1-12.0); Hematocrit 50.3 % (42.0-52.0); Hemoglobin 16.8 g/dL (14.1-18.0); Immature Granulocytes # 0.01 10^3uL; Immature Granulocytes % 0.1 %; Lymphocytes # 3.2 K/mm3 (0.7-4.5); Lymphocytes % 37.6 % (10-50); Mean Corpuscular HGB Conc 33.4 g/dL (31.8-35.4); Mean Corpuscular Hemoglobin 30.7 pg (27.0-31.2); Mean Corpuscular Volume 91.8 fl (80-94); Mean Platelet Volume 10.6 fl (7.4-10.4); Monocytes # 0.5 K/mm3 (0.1-1.0); Monocytes % 5.9 % (1.7-9.3); Neutrophils # 4.5 K/mm3 (1.8-7.8); Neutrophils % 53.4 % (37.0-80.0); Nucleated Red Blood Cells # 0 10^3/uL; Nucleated Red Blood Cells % 0 %; Platelet Count 252 K/mm3 (142-424); Red Blood Count 5.48 M/mm3 (4.60-6.20); Red Cell Distribution Width 12.2 % (11.5-17.5); Red Cell Distribution Width-SD 40.9 fL; White Blood Count 8.4 K/mm3 (4.8-10.8)
[2025-02-05 12:50] LABS: Microscopic, Urine URINE MICROSCOPIC (MICROSCOPIC)
[2025-02-05 12:50] LABS: Albumin Level 4.8 g/dl (3.5-5.0); Chloride 105 mmol/L (98-107); Potassium 3.9 mmoL/L (3.5-5.1); Sodium 140 mmol/L (136-145)
--- NOTE | 2025-02-05 12:50 | PC.NURSE ---
PT agreeable to cardiac catheterization technician. marketing programs manager in place. PT denies needs at this time.
[2025-02-05 12:53] LABS: Alanine Aminotransferase 44 U/L (12-78); Albumin/Globulin Ratio 1.7 (1.1-1.8); Alkaline Phosphatase 85 U/L (38-126); Anion Gap 8.9 mEq/L (5-15); Aspartate Amino Transferase 37 U/L (17-59); Bilirubin,Total 0.4 mg/dl (0.2-1.3); Blood Urea Nitrogen 15 mg/dl (9-20); Calcium 9.3 mg/dl (8.4-10.2); Carbon Dioxide 30 mmol/L (22.0-30.0); Creatinine Clearance Estimated 212 mL/min (50-200); Estimated Glomerular Filt Rate 115 ml/min (>60); GFR (African American) 139 ML/MIN (>60); Globulin 2.8 g/dL (1.3-3.2); Glucose 111 mg/dl (74-100); Total Protein,Serum 7.6 g/dl (6.3-8.2)
[2025-02-05 12:55] LABS: Appearance,Urine CLEAR (Clear); Bilirubin,Urine Negative (Negative); Blood, Urine Negative (Negative); Color,Urine YELLOW (Yellow); Glucose,Urine (UA) Negative (Negative); Ketones,Urine Negative (Negative); Leukocyte Esterase,Urine Negative (Negative); Nitrate,Urine Negative (Negative); Protein,Urine Negative (Negative); Specific Gravity, Urine <= 1.005 (1.005-1.030); Urobilinogen,Urine 0.2 EU/dl (0.2)
[2025-02-05 13:03] LABS: NT Pro Brain Natriuretic Pep. 28.7 pg/mL (0-125)
[2025-02-05 13:05] LABS: Troponin I < 0.01 ng/ml (0.00-0.034)
[2025-02-05 13:24] LABS: Bacteria,Urine Trace /lpf; Squamous Epithelial Cell,Urine Occasional #/hpf (0-5)
[2025-02-05 13:27] VITALS: BP 148/84; PULSE 78; RESP 18; TEMP 36.9; O2SAT 96
== END 2025-02-05 13:28 | disposition home or self-care (01) ==
PROVIDERS: Physician Assistant; Emergency Provider Student in an Organized Health Care Education/Training Program
DX: R11.2 Nausea with vomiting, unspecified (principal); R42 Dizziness and giddiness; R19.7 Diarrhea, unspecified; F17.210 Nicotine dependence, cigarettes, uncomplicated
CPT/HCPCS: 80053; 81001; 83880; 84484; 85025; 93005; 96360; 99284; J7120